=== PATIENT | female | born 1995 | race Two or more races ===

== ENCOUNTER 2016-07-23 23:00 | Inpatient (IN) | payer OTHER ==
[2016-07-23] MEDS ORDERED: RINGERS SOLUTION,LACTATED 300 ML IV ONE (23:41)
[2016-07-23] MEDS ORDERED: DINOPROSTONE 10 MG VAGINAL INSERT.SR PV PRN (23:41)
[2016-07-23] MEDS ORDERED: ACETAMINOPHEN 325 MG TABLET PO PRN (23:42)
[2016-07-23] MEDS ORDERED: MAG HYDROX/AL HYDROX/SIMETH SUSP 30 ML UDCUP PO PRN (23:42)
[2016-07-23] MEDS ORDERED: ZOLPIDEM TARTRATE 5 MG TABLET PO SCH (23:45)
[2016-07-23 23:57] LABS: APPEARANCE,URINE CLEAR; BILIRUBIN,URINE NEGATIVE (NEGATIVE); GLUCOSE, URINE NEGATIVE (NEGATIVE); KETONES,URINE NEGATIVE (NEGATIVE); LEUKOCYTE ESTERASE,URINE NEGATIVE (NEGATIVE); NITRITE,URINE NEGATIVE (NEGATIVE); PROTEIN,URINE NEGATIVE (NEGATIVE); URINE SPECIFIC GRAVITY 1.012; UROBILINOGEN,URINE NEGATIVE mg/dL (<2.0)
[2016-07-23 23:58] LABS: ABSOLUTE EOSINOPHILS # (AUTO) 0.1 10^3/uL (0.0-0.6); ABSOLUTE LYMPHOCYTES (AUTO) 2.2 10^3/uL (0.5-4.7); ABSOLUTE MONOCYTES (AUTO) 1.1 10^3/uL (0.1-1.4); ABSOLUTE NEUT (AUTO) 6.4 10^3/uL (1.7-8.2); BASOPHILS % (AUTO) 0.4 % (0-2); EOSINOPHILS % (AUTO) 1.2 % (0-6); HEMATOCRIT 30.9 % (36.0-47.0); HEMOGLOBIN 10.2 g/dL (12.0-15.5); HGB HCT DIFFERENCE -0.3; LYMPHOCYTES % (AUTO) 21.9 % (13-45); MEAN CORPUSCULAR HEMOGLOBIN 27.9 pg (27.0-33.4); MEAN CORPUSCULAR HGB CONC 33.1 g/dL (32.0-36.0); MEAN CORPUSCULAR VOLUME 85 fl (80-97); MONOCYTES % (AUTO) 11.7 % (3-13); RED BLOOD COUNT 3.66 10^6/uL (3.72-5.28); RED CELL DISTRIBUTION WIDTH 14.4 % (11.5-14.0); SEGMENTED NEUTROPHILS % (AUTO) 64.8 % (42-78); WHITE BLOOD COUNT 9.9 10^3/uL (4.0-10.5)
[2016-07-24] MEDS ORDERED: DINOPROSTONE 10 MG VAGINAL INSERT.SR ONE (00:06)
[2016-07-24] MEDS: RINGERS SOLUTION,LACTATED 1,000 ML IV PRN ×2 (00:14→06:36)
[2016-07-24 00:18] LABS: URINE BARBITURATES SCREEN NEGATIVE; URINE METHADONE SCREEN NEGATIVE; URINE OPIATES LOW NEGATIVE; URINE PHENCYCLIDINE SCREEN NEGATIVE
--- NOTE | 2016-07-24 08:01 | L&D Flow Sheet ---
LD Flowsheet Datetime Report Generated by CPN: 07/24/2016 08:00 Datetime: 07/24/2016 07:38 Level of Consciousness: Fully Conscious (Philly Sheree, RN) Headache: Denies (Philly Sheree, RN) Breath Sounds, Left: Clear and Equal (Philly Sheree, RN) Breath Sounds, Right: Clear and Equal (Philly Sheree, RN) Nausea/Vomiting: Denies (Philly Sheree, RN) RUQ Epigastric Pain: Denies (Philly Sheree, RN) Datetime: 07/24/2016 07:30 Monitor Mode: External; Palpation (Philly Sheree, RN) Frequency (min): irreg (Philly Sheree, RN) Quality: Mild (Philly Sheree, RN) Resting Tone (Palpate): Relaxed (Philly Sheree, RN) Monitor Mode: External US (Philly Sheree, RN) FHR Baseline Rate : 125 (Philly Sheree, RN) Variability: Moderate 6-25 bpm (Philly Sheree, RN) Accelerations: 15X15 (Philly Sheree, RN) Decelerations: None (Philly Sheree, RN) Datetime: 07/24/2016 07:21 Patient Care Comments: pt resting in bed with eyes closed laying on her left side (Philly Sheree, RN) Datetime: 07/24/2016 07:12 Communication Comments: Bedside report to A Sheree RN, care relinquished (Leisa Velizsel, RN) Datetime: 07/24/2016 07:00 Monitor Mode: External (Leisa Mary, RN) Frequency (min): irregular (Leisa Mary, RN) Quality: Mild (Leisa Mary, RN) Duration (sec): 120 (Leisa Mary, RN) Resting Tone (Palpate): Relaxed (Leisa Mary, RN) Monitor Mode: External US (Leisa Mary, RN) FHR Baseline Rate : 125 (Leisa Mary, RN) Variability: Moderate 6-25 bpm (Leisa Mary, RN) Accelerations: 15X15 (Leisa Mary, RN) Decelerations: None (Leisa Mary, RN) Datetime: 07/24/2016 06:38 IV/Blood Work: New IV Bag Hung; IV Bag Number @ 2 (Leisa Mary, RN) Datetime: 07/24/2016 06:35 I/O Interventions: Up to BR (Leisa Mary, RN) Datetime: 07/24/2016 06:30 Monitor Mode: External (Leisa Mary, RN) Frequency (min): irregular (Leisa Mary, RN) Quality: Mild (Leisa Mary, RN) Duration (sec): 100 (Leisa Mary, RN) Resting Tone (Palpate): Relaxed (Leisa Mary, RN) Monitor Mode: External US (Leisa Mary, RN) FHR Baseline Rate : 135 (Leisa Mary, RN) Variability: Moderate 6-25 bpm (Leisa Mary, RN) Accelerations: 15X15 (Leisa Mary, RN) Decelerations: None (Leisa Mary, RN) Datetime: 07/24/2016 06:00 Monitor Mode: External (Leisa Mary, RN) Frequency (min): 2-5 (Leisa Mary, RN) Quality: Mild (Leisa Mary, RN) Duration (sec): 60-120 (Leisa Mary, RN) Duration Criteria: Less than Two 120 Second Contractions (Leisa Mary, RN) Pattern: Normal: <= 5 Contractions in 10 Minutes (Leisa Mary, RN) Resting Tone (Palpate): Relaxed (Leisa Mary, RN) Monitor Mode: External US (Leisa Mary, RN) FHR Baseline Rate : 125 (Leisa Mary, RN) Variability: Moderate 6-25 bpm (Leisa Mary, RN) Accelerations: 15X15 (Leisa Mary, RN) Decelerations: None (Leisa Mary, RN) Datetime: 07/24/2016 05:36 NBP Sys/Carolyne/Mean (mmHg): 130 (QS system process) : 65 (QS system process) : 88 (QS system process) Pulse: 63 (QS system process) Respirations: 16 (Leisa Mary, RN) Temperature (F): 98.0 (Leisa Mary, RN) Temperature (C): 36.7 (QS system process) LaborFlag: Antepartum (QS system process) Datetime: 07/24/2016 05:30 Monitor Mode: External (Leisa Mary, RN) Frequency (min): 5-6 (Leisa Mary, RN) Quality: Mild (Leisa Mary, RN) Duration (sec): 70-180 (Leisa Mary, RN) Duration Criteria: More than Two 120 Second or Greater Contractions (Leisa Mary, RN) Pattern: Normal: <= 5 Contractions in 10 Minutes (Leisa Mary, RN) Resting Tone (Palpate): Relaxed (Leisa Mary, RN) Monitor Mode: External US (Leisa Mary, RN) FHR Baseline Rate : 125 (Leisa Mary, RN) Variability: Moderate 6-25 bpm (Leisa Mary, RN) Accelerations: 15X15 (Leisa Mary, RN) Decelerations: None (Leisa Mary, RN) Datetime: 07/24/2016 05:27 I/O Interventions: Up to BR (Leisa Mary, RN) Datetime: 07/24/2016 05:00 Monitor Mode: External (Leisa Mary, RN) Frequency (min): 2-4 (Leisa Mary, RN) Quality: Mild (Leisa Mary, RN) Duration (sec): 60-120 (Leisa Mary, RN) Duration Criteria: Less than Two 120 Second Contractions (Leisa Mary, RN) Pattern: Normal: <= 5 Contractions in 10 Minutes (Leisa Mary, RN) Resting Tone (Palpate): Relaxed (Leisa Mary, RN) Monitor Mode: External US (Leisa Mary, RN) FHR Baseline Rate : 125 (Leisa Mary, RN) Variability: Moderate 6-25 bpm (Leisa Mary, RN) Accelerations: 15X15 (Leisa Mary, RN) Decelerations: None (Leisa Mary, RN) Datetime: 07/24/2016 04:34 I/O Interventions: Up to BR (Leisa Mary, RN) Datetime: 07/24/2016 04:30 Monitor Mode: External (Leisa Mary, RN) Frequency (min): 5-6 (Leisa Mary, RN) Quality: Mild (Leisa Mary, RN) Duration (sec): 100-180 (Leisa Mary, RN) Duration Criteria: More than Two 120 Second or Greater Contractions (Leisa Mary, RN) Pattern: Normal: <= 5 Contractions in 10 Minutes (Leisa Mary, RN) Resting Tone (Palpate): Relaxed (Leisa Mary, RN) Monitor Mode: External US (Leisa Mary, RN) FHR Baseline Rate : 125 (Leisa Mary, RN) Variability: Moderate 6-25 bpm (Leisa Mary, RN) Accelerations: 15X15 (Leisa Mary, RN) Decelerations: None (Leisa Mary, RN) Datetime: 07/24/2016 04:00 Monitor Mode: External (Leisa Mary, RN) Frequency (min): 5-7 (Leisa Mary, RN) Quality: Mild (Leisa Mary, RN) Duration (sec): 120-200 (Leisa Mary, RN) Duration Criteria: More than Two 120 Second or Greater Contractions (Leisa Mary, RN) Pattern: Normal: <= 5 Contractions in 10 Minutes (Leisa Mary, RN) Resting Tone (Palpate): Relaxed (Leisa Mary, RN) Monitor Mode: External US (Leisa Mary, RN) FHR Baseline Rate : 130 (Leisa Mary, RN) Variability: Moderate 6-25 bpm (Leisa Mary, RN) Accelerations: 15X15 (Leisa Mary, RN) Decelerations: None (Leisa Mary, RN) Datetime: 07/24/2016 03:30 Monitor Mode: External (Leisa Mary, RN) Frequency (min): 2-7 (Leisa Mary, RN) Quality: Mild (Leisa Mary, RN) Duration (sec): 60-170 (Leisa Mary, RN) Duration Criteria: More than Two 120 Second or Greater Contractions (Leisa Mary, RN) Pattern: Normal: <= 5 Contractions in 10 Minutes (Leisa Mary, RN) Resting Tone (Palpate): Relaxed (Leisa Mary, RN) Monitor Mode: External US (Leisa Mary, RN) FHR Baseline Rate : 120 (Leisa Mary, RN) Variability: Moderate 6-25 bpm (Leisa Mary, RN) Accelerations: 15X15 (Leisa Mary, RN) Decelerations: None (Leisa Mary, RN) Datetime: 07/24/2016 03:00 Monitor Mode: External (Leisa Mary, RN) Frequency (min): 4-6 (Leisa Mary, RN) Quality: Mild (Leisa Mary, RN) Duration (sec): 80-110 (Leisa Mary, RN) Resting Tone (Palpate): Relaxed (Leisa Mary, RN) Monitor Mode: External US (Leisa Mary, RN) FHR Baseline Rate : 135 (Leisa Mary, RN) Variability: Moderate 6-25 bpm (Leisa Mary, RN) Accelerations: 15X15 (Leisa Mary, RN) Decelerations: None (Leisa Mary, RN) Datetime: 07/24/2016 02:52 Monitor Interventions for UA: [place] Adjusted (Leisa Hernandez, RN) Patient Care Comments: pt denies needs at this time (Leisa Hernandez, RN) Communication: RN at Bedside (Leisa Hernandez, RN) Datetime: 07/24/2016 02:30 Monitor Mode: External (Leisa Mary, RN) Frequency (min): 3-7 (Leisa Mary, RN) Quality: Mild (Leisa Mary, RN) Duration (sec): 90-180 (Leisa Mary, RN) Duration Criteria: More than Two 120 Second or Greater Contractions (Leisa Mary, RN) Pattern: Normal: <= 5 Contractions in 10 Minutes (Leisa Mary, RN) Resting Tone (Palpate): Relaxed (Leisa Mary, RN) Monitor Mode: External US (Leisa Mary, RN) FHR Baseline Rate : 135 (Leisa Mary, RN) Variability: Moderate 6-25 bpm (Leisa Mary, RN) Accelerations: 15X15 (Leisa Mary, RN) Decelerations: None (Leisa Mary, RN) Datetime: 07/24/2016 02:00 Monitor Mode: External (Leisa Mary, RN) Frequency (min): 3-5 (Leisa Mary, RN) Quality: Mild (Leisa Mary, RN) Duration (sec): 90-120 (Leisa Mary, RN) Duration Criteria: More than Two 120 Second or Greater Contractions (Leisa Mary, RN) Pattern: Normal: <= 5 Contractions in 10 Minutes (Leisa Mary, RN) Resting Tone (Palpate): Relaxed (Leisa Mary, RN) Monitor Mode: External US (Leisa Mary, RN) FHR Baseline Rate : 145 (Leisa Mary, RN) Variability: Moderate 6-25 bpm (Leisa Mary, RN) Accelerations: 15X15 (Leisa Mary, RN) Decelerations: None (Leisa Mary, RN) Datetime: 07/24/2016 01:48 I/O Interventions: Up to BR (Leisa Mary, RN) Datetime: 07/24/2016 01:30 Monitor Mode: External (Leisa Mary, RN) Frequency (min): irregular (Leisa Mary, RN) Quality: Mild (Leisa Mary, RN) Duration (sec): 60-170 (Leisa Mary, RN) Duration Criteria: More than Two 120 Second or Greater Contractions (Leisa Mary, RN) Pattern: Normal: <= 5 Contractions in 10 Minutes (Leisa Mary, RN) Resting Tone (Palpate): Relaxed (Leisa Mary, RN) Monitor Mode: External US (Leisa Mary, RN) FHR Baseline Rate : 140 (Leisa Mary, RN) Variability: Moderate 6-25 bpm (Leisa Mary, RN) Accelerations: 15X15 (Leisa Mary, RN) Decelerations: None (Leisa Mary, RN) Datetime: 07/24/2016 01:00 Monitor Mode: External (Leisa Mary, RN) Monitor Interventions for UA: [place] Adjusted (Leisa Mary, RN) Frequency (min): irregular (Leisa Mary, RN) Quality: Mild (Leisa Mary, RN) Duration (sec): 100-140 (Leisa Mary, RN) Duration Criteria: Less than Two 120 Second Contractions (Leisa Mary, RN) Pattern: Normal: <= 5 Contractions in 10 Minutes (Leisa Mary, RN) Resting Tone (Palpate): Relaxed (Leisa Mary, RN) Monitor Mode: External US (Leisa Mary, RN) FHR Baseline Rate : 145 (Leisa Mary, RN) Variability: Moderate 6-25 bpm (Leisa Mary, RN) Accelerations: 15X15 (Leisa Mary, RN) Decelerations: None (Leisa Mary, RN) Datetime: 07/24/2016 00:30 Monitor Mode: External (Leisa Mary, RN) Frequency (min): 4-5 (Leisa Mary, RN) Quality: Mild (Leisa Mary, RN) Duration (sec): 50-100 (Leisa Mary, RN) Duration Criteria: Less than Two 120 Second Contractions (Leisa Mary, RN) Pattern: Normal: <= 5 Contractions in 10 Minutes (Leisa Mary, RN) Resting Tone (Palpate): Relaxed (Leisa Mary, RN) Monitor Mode: External US (Leisa Mary, RN) FHR Baseline Rate : 145 (Leisa Mary, RN) Variability: Moderate 6-25 bpm (Leisa Mary, RN) Accelerations: 15X15 (Leisa Mary, RN) Decelerations: None (Leisa Amry, RN) Datetime: 07/24/2016 00:15 Monitor Mode: External (Leisa Mary, RN) Frequency (min): 3-4 (Leisa Mary, RN) Quality: Mild (Leisa Mary, RN) Duration (sec): 90-120 (Leisa Mary, RN) Duration Criteria: Less than Two 120 Second Contractions (Leisa Mary, RN) Pattern: Normal: <= 5 Contractions in 10 Minutes (Leisa Mary, RN) Resting Tone (Palpate): Relaxed (Leisa Mary, RN) Monitor Mode: External US (Leisa Mary, RN) FHR Baseline Rate : 140 (Leisa Mary, RN) Variability: Moderate 6-25 bpm (Leisa Mary, RN) Accelerations: 15X15 (Leisa Mary, RN) Decelerations: None (Leisa Mary, RN) Datetime: 07/24/2016 00:09 Dilatation (cm): 1.0 (Leisa Hernandez, RN) Effacement (%): 80 (Leisa Hernandez, RN) Station: -2 (Leisa Hernandez, RN) Exam by: Yokasta Hernandez RN (Leisa Hernandez, RN) Vaginal Bleeding: None (Leisa Hernandez RN) Cervix, Consistency: Moderate (Leisa Hernandez, RN) Cervix, Position: Posterior (Leisajw Hernandez, RN) Dilatation (cm): 1-2 cm (Leisa Hernandez RN) Effacement: >80_ effaced (Leisa Velizsel, RN) Station: minus 2 (Leisa Mary, RN) Consistency: Medium (Leisa Mary, RN) Position: Posterior (Leisa Mary, RN) Total Barth's Score: 6 (QS system process) : 5-8 = Small percentage of induction failure (QS system process) Cervical Ripening Agents: Cervidil (Leisa Mary, RN) Datetime: 07/24/2016 00:00 Monitor Mode: External (Leisa Mary, RN) Frequency (min): Irritability (Leisa Mary, RN) Quality: Mild (Leisa Mary, RN) Quality: abd soft to palpation (Leisa Mary, RN) Resting Tone (Palpate): Relaxed (Leisa Mary, RN) Monitor Mode: External US (Leisa Hernandez, RN) FHR Baseline Rate : 135 (Leisa Mary, RN) Variability: Moderate 6-25 bpm (Leisa Mary, RN) Accelerations: 15X15 (Leisa Mary, RN) Decelerations: None (Leisa Mary, RN) Pain Presence: None/Denies (Leisa Mary, RN) Membrane Status: Intact (Leisa Mary, RN) Vaginal Bleeding: None (Leisa Mary, RN) Level of Consciousness: Fully Conscious (Leisa Mary, RN) DTR's/Clonus: DTRs 2+; No Clonus (Leisajw Rosenbergl, RN) Headache: Denies (Leisa Hernandez, RN) Breath Sounds, Left: Clear and Equal (Leisa Hernandez RN) Breath Sounds, Right: Clear and Equal (Leisa Hernandez RN) Nausea/Vomiting: Denies (Leisa Hernandez RN) RUQ Epigastric Pain: Denies (Leisa Hernandez RN) Patient Position/Activity: Left Tilt (Leisa Hernandez RN) Comfort Measures: Family Support (Leisa Hernandez RN) Instructional Method: Verbal; Patient Instructed; Family/Support Person Instructed; Verbalized Understanding (Leisa Hernandez RN) Plan of Care: Plan of Care Discussed; Vaginal Delivery; Labor; Induction (Leisa Hernandez RN) Unit Routine: Nu Mine to Room; Call Chen; Bed; Unit Personnel; Monitoring; Bathroom Privileges (Leisa Hernandez RN) Labor/Induction: Cervical Ripening; Induction (Leisa Hernandez RN) Medications: Cervical Ripening; Pitocin (Leisa Hernandez RN) LaborFlag: Antepartum (QS system process) Datetime: 07/23/2016 23:55 I/O Interventions: Up to BR (Leisa Hernandez RN) Datetime: 07/23/2016 23:50 Procedures: Consents Signed (Leisa Mary, RN) Datetime: 07/23/2016 23:45 Monitor Mode: External (Leisa Mary, RN) Frequency (min): 4-5 (Leisa Mary, RN) Quality: Mild (Leisa Mary, RN) Duration (sec): 80-90 (Leisa Mary, RN) Resting Tone (Palpate): Relaxed (Leisa Mary, RN) Monitor Mode: External US (Leisa Mary, RN) FHR Baseline Rate : 130 (Leisa Mary, RN) Variability: Moderate 6-25 bpm (Leisa Mary, RN) Accelerations: 15X15 (Leisa Mary, RN) Decelerations: None (Leisa Mary, RN) Datetime: 07/23/2016 23:34 IV/Blood Work: Labs Drawn (Leisa Mary, RN) Datetime: 07/23/2016 23:31 NBP Sys/Carolyne/Mean (mmHg): 128 (QS system process) : 69 (QS system process) : 91 (QS system process) Pulse: 66 (QS system process) Respirations: 17 (Leisa Mary, RN) Temperature (F): 98.1 (Leisa Mary, RN) Temperature (C): 36.7 (QS system process) Temperature Route: Oral (Leisa Mary, RN) LaborFlag: Antepartum (QS system process) Datetime: 07/23/2016 23:30 Monitor Mode: External (Leisa Mary, RN) Frequency (min): x2 (Leisa Mary, RN) Quality: Mild (Leisa Mary, RN) Duration (sec): 50-70 (Leisa Mary, RN) Resting Tone (Palpate): Relaxed (Leisa Mary, RN) Monitor Mode: External US (Leisa Mary, RN) FHR Baseline Rate : 130 (Leisa Mary, RN) Variability: Moderate 6-25 bpm (Leisa Mary, RN) Accelerations: 15X15 (Leisa Mary, RN) Decelerations: None (Leisa Mary, RN) Datetime: 07/23/2016 23:24 IV/Blood Work: IV Started; IV Bolus Started; IV Bolus Given ml @ 250 (Leisa Mary, RN) Datetime: 07/23/2016 23:16 Stage of : Antepartum (Leisa Mary, RN)
--- NOTE | 2016-07-24 10:01 | L&D Flow Sheet ---
LD Flowsheet Datetime Report Generated by CPN: 07/24/2016 10:00 Datetime: 07/24/2016 09:30 Monitor Mode: External; Palpation (Philly Sheree, RN) Frequency (min): irreg (Philly Sheree, RN) Quality: Mild (Philly Sheree, RN) Resting Tone (Palpate): Relaxed (Philly Shreee, RN) Monitor Mode: External US (Philly Sheree, RN) FHR Baseline Rate : 130 (Philly Sheree, RN) Variability: Moderate 6-25 bpm (Philly Sheree, RN) Accelerations: 15X15 (Philly Sheree, RN) Decelerations: None (Philly Sheree, RN) Datetime: 07/24/2016 09:01 Patient Position/Activity: Left Lateral (Philly Sheree, RN) Datetime: 07/24/2016 09:00 Monitor Mode: External; Palpation (Philly Sheree, RN) Frequency (min): irreg (Philly Sheree, RN) Quality: Mild (Philly Sheree, RN) Resting Tone (Palpate): Relaxed (Philly Sheree, RN) Monitor Mode: External US (Philly Sheree, RN) FHR Baseline Rate : 125 (Philly Sheree, RN) Variability: Moderate 6-25 bpm (Philly Sheree, RN) Accelerations: 15X15 (Philly Sheree, RN) Decelerations: None (Philly Sheree, RN) Datetime: 07/24/2016 08:58 I/O Interventions: Up to BR (Philly Sheree, RN) Datetime: 07/24/2016 08:30 Monitor Mode: External; Palpation (Philly Sheree, RN) Frequency (min): irreg (Philly Sheree, RN) Quality: Mild (Philly Sheree, RN) Resting Tone (Palpate): Relaxed (Philly Sheree, RN) Monitor Mode: External US (Philly Sheree, RN) FHR Baseline Rate : 130 (Philly Sheree, RN) Variability: Moderate 6-25 bpm (Philly Sheree, RN) Accelerations: None (Philly Sheree, RN) Decelerations: None (Philly Sheree, RN) Datetime: 07/24/2016 08:00 Monitor Mode: External; Palpation (Philly Sheree, RN) Frequency (min): irreg (Philly Sheree, RN) Quality: Mild (Philly Sheree, RN) Resting Tone (Palpate): Relaxed (Philyl Sheree, RN) Monitor Mode: External US (Philly Sheree, RN) FHR Baseline Rate : 130 (Philly Sheree, RN) Variability: Moderate 6-25 bpm (Philly Sheree, RN) Accelerations: 15X15 (Philly Sheree, RN) Decelerations: None (Philly Bentley RN)
--- NOTE | 2016-07-24 12:01 | L&D Flow Sheet ---
LD Flowsheet Datetime Report Generated by CPN: 07/24/2016 12:00 Datetime: 07/24/2016 11:00 Monitor Mode: External; Palpation (Philly Sheree, RN) Frequency (min): occ (Philly Sheree, RN) Quality: Mild (Philly Sheree, RN) Resting Tone (Palpate): Relaxed (Philly Sheree, RN) Monitor Mode: External US (Philly Sheree, RN) FHR Baseline Rate : 125 (Philly Sheree, RN) Variability: Moderate 6-25 bpm (Philly Sheree, RN) Accelerations: 15X15 (Philly Sheree, RN) Decelerations: None (Philly Sheree, RN) Datetime: 07/24/2016 10:30 Monitor Mode: External; Palpation (Philly Sheree, RN) Frequency (min): irreg (Philly Sheree, RN) Quality: Mild (Philly Sheree, RN) Resting Tone (Palpate): Relaxed (Philly Sheree, RN) Monitor Mode: External US (Philly Sheree, RN) FHR Baseline Rate : 130 (Philly Sheree, RN) Variability: Moderate 6-25 bpm (Philly Sheree, RN) Accelerations: 15X15 (Philly Sheree, RN) Decelerations: None (Philly Sheree, RN) Datetime: 07/24/2016 10:19 I/O Interventions: Up to BR (Philly Sheree, RN) Datetime: 07/24/2016 10:00 Monitor Mode: External; Palpation (Philly Sheree, RN) Frequency (min): irreg (Philly Sheree, RN) Quality: Mild (Philly Bentley RN) Resting Tone (Palpate): Relaxed (Philly Bentley RN) Monitor Mode: External US (Philly Bentley RN) FHR Baseline Rate : 125 (Philly Bentley RN) Variability: Moderate 6-25 bpm (Philly Bentley RN) Accelerations: 15X15 (Philly Bentley RN) Decelerations: None (Philly Bentley RN)
[2016-07-24] MEDS ORDERED: MISOPROSTOL 0.1 MG TABLET ONE ×2 (13:32→19:55)
--- NOTE | 2016-07-24 14:01 | L&D Flow Sheet ---
LD Flowsheet Datetime Report Generated by CPN: 07/24/2016 14:00 Datetime: 07/24/2016 13:22 NBP Sys/Carolyne/Mean (mmHg): 118 (QS system process) : 55 (QS system process) : 79 (QS system process) Pulse: 68 (QS system process) LaborFlag: Antepartum (QS system process) Datetime: 07/24/2016 13:18 Dilatation (cm): 1.0 (Philly Sheree, RN) Effacement (%): 50 (Philly Sheree, RN) Station: -1 (Philly Sheree, RN) Exam by: C. Vega CNM (Philly Sheree, RN) Datetime: 07/24/2016 13:16 Communication Comments: C. Vega CNM at bedside (Philly Sheree, RN) Datetime: 07/24/2016 12:07 Medication Comments: Cervidil removed (Philly Sheree, RN) Patient Care Comments: monitors disconnected for pt to shower and ambulate for 1 hour (Philly Sheree, RN) Datetime: 07/24/2016 12:00 Monitor Mode: External; Palpation (Philly Bentley, RN) Frequency (min): irreg (Philly Bentley, RN) Quality: Mild (Philly Sheree, RN) Resting Tone (Palpate): Relaxed (Philly Bentley, RN) Monitor Mode: External US (Philly Benltey, RN) FHR Baseline Rate : 130 (Philly Sheree, RN) Variability: Moderate 6-25 bpm (Philly Sheree, RN) Accelerations: 15X15 (Philly Sheree, RN) Decelerations: None (Philly Sheree, RN)
--- NOTE | 2016-07-24 16:01 | L&D Flow Sheet ---
LD Flowsheet Datetime Report Generated by CPN: 07/24/2016 16:00 Datetime: 07/24/2016 15:00 Monitor Mode: External; Palpation (Philly Sheree, RN) Frequency (min): 2-6 (Philly Sheree, RN) Quality: Mild (Philly Sheree, RN) Duration (sec): 60-90 (Philly Sheree, RN) Resting Tone (Palpate): Relaxed (Philly Sheree, RN) Monitor Mode: External US (Philly Sheree, RN) FHR Baseline Rate : 135 (Philly Sheree, RN) Variability: Moderate 6-25 bpm (Philly Sheree, RN) Accelerations: 15X15 (Philly Sheree, RN) Decelerations: None (Philly Sheree, RN) Datetime: 07/24/2016 14:30 Monitor Mode: External; Palpation (Philly Sheree, RN) Frequency (min): irreg (Philly Sheree, RN) Quality: Mild (Philly Sheree, RN) Resting Tone (Palpate): Relaxed (Philly Sheree, RN) Monitor Mode: External US (Philly Sheree, RN) FHR Baseline Rate : 135 (Philly Sheree, RN) Variability: Moderate 6-25 bpm (Philly Sheree, RN) Accelerations: 15X15 (Philly Sheree, RN) Decelerations: None (Philly Sheree, RN) Datetime: 07/24/2016 14:27 Monitor Interventions for UA: [place] Adjusted (Philly Sheree, RN) Monitor Interventions for FHR: Ultrasound Adjusted (Philly Sheree, RN) Communication: RN at Bedside (Philly Sheree, RN) Datetime: 07/24/2016 14:26 Patient Position/Activity: Left Lateral (Philly Bentley, RN) Patient Care Comments: pt resting in bed with eyes closed (Philly Bentley, RN) Datetime: 07/24/2016 14:00 Monitor Mode: External; Palpation (Philly Bentley, RN) Frequency (min): 2-5 (Philly Bentley, RN) Quality: Mild (Philly Bentley, RN) Duration (sec): 60-90 (Philly Sheree, RN) Resting Tone (Palpate): Relaxed (Philly Bentley, RN) Monitor Mode: External US (Philly Bentley, RN) FHR Baseline Rate : 140 (Philly Bentley, RN) Variability: Moderate 6-25 bpm (Philly Sheree, RN) Accelerations: 15X15 (Philly Sheree, RN) Decelerations: None (Philly Bentley, RN)
--- NOTE | 2016-07-24 17:06 | L&D Progress Notes ---
PROGRESS NOTES Datetime Report Generated by CPN: 07/24/2016 17:05 PROGRESS NOTE Impression Other: IOL-stable Procedures: Sterile Vag Exam Plan: Continue Present Management; Induction Informed Consent Obtained: Induction of Labor; Risks, Benefits and Alternatives Discussed Vital Signs : Reviewed; Within Normal Limits Comment: Late entry to 1330 S: pt. stable, reports mild cramping, no other discomforts at this time O: VSS, Cat I tracing, cervix as stated A: IOL-stable, progressing P: will continue IOL with cytotec at this time. Reviewed with Dr. Lock. Reassess as clinically indicated or earlier prn. VAGINAL EXAM Dilatation: 1 Effacement: 80 Station: -2 MEMBRANES Pooling: Negative Membranes: Intact FETUS A : 41.1 Estimated Weight (gm): 4000 Presentation: Vertex SIGNATURE SIGNATURE: [id number] Assignment: Rosa Lock MD Signature: with User ID: [email or web address] : with User ID: [email or web address]
--- NOTE | 2016-07-24 18:01 | L&D Flow Sheet ---
LD Flowsheet Datetime Report Generated by CPN: 07/24/2016 18:00 Datetime: 07/24/2016 17:50 I/O Interventions: Up to BR (Philly Sheree, RN) Datetime: 07/24/2016 17:49 Monitor Mode: External; Palpation (Philly Sheree, RN) Frequency (min): 2-5 (Philly Sheree, RN) Quality: Mild (Philly Sheree, RN) Duration (sec): 60-90 (Philly Sheree, RN) Resting Tone (Palpate): Relaxed (Philly Sheree, RN) Monitor Mode: External US (Philly Sheree, RN) FHR Baseline Rate : 125 (Philly Sheree, RN) Variability: Moderate 6-25 bpm (Philly Sheree, RN) Accelerations: 15X15 (Philly Sheree, RN) Decelerations: None (Philly Sheree, RN) Datetime: 07/24/2016 17:48 Communication Comments: Dr. Lock called unit after talking with Zoie Vega CNM and said to let pt eat, ambulate, and hold Cervidil. She wants to be called once shift supervisor rn gets on to see what she wants to give pt for medication (Philly Sheree, RN) Datetime: 07/24/2016 17:38 Communication Comments: Zoie Vega CNM on unit, informed of SVE. FHR strip reviewed. Order recieved to let pt order dinner, walk around for about an hour then place another cervidil tonight (Philly Sheree, RN) Datetime: 07/24/2016 17:37 Dilatation (cm): 1.0 (Philly Sheree, RN) Effacement (%): 60 (Philly Sheree, RN) Station: -1 (Philly Sheree, RN) Exam by: Elliot Sheree RN (Pihlly Sheree, RN) Datetime: 07/24/2016 17:30 Monitor Mode: External; Palpation (Philly Sheree, RN) Frequency (min): 2-5 (Philly Sheree, RN) Quality: Mild (Philly Sheree, RN) Duration (sec): 60-90 (Philly Sheree, RN) Resting Tone (Palpate): Relaxed (Philly Sheree, RN) Monitor Mode: External US (Philly Sheree, RN) FHR Baseline Rate : 135 (Philly Sheree, RN) Variability: Moderate 6-25 bpm (Philly Sheree, RN) Accelerations: None (Philly Sheree, RN) Decelerations: None (Philly Sheree, RN) Datetime: 07/24/2016 17:00 Monitor Mode: External; Palpation (Philly Sheree, RN) Frequency (min): 3-5 (Philly Sheree, RN) Quality: Mild (Philly Sheree, RN) Duration (sec): 60-90 (Philly Sheree, RN) Resting Tone (Palpate): Relaxed (Philly Sheree, RN) Monitor Mode: External US (Philly Sheree, RN) FHR Baseline Rate : 145 (Philly Sheree, RN) Variability: Moderate 6-25 bpm (Philly Sheree, RN) Accelerations: 15X15 (Philly Sheree, RN) Decelerations: None (Phlily Sheree, RN) Datetime: 07/24/2016 16:54 Medication Comments: new bag of LR hung (Philly Sheree, RN) Datetime: 07/24/2016 16:30 Monitor Mode: External; Palpation (Philly Sheree, RN) Frequency (min): 1-4 (Philly Sheree, RN) Quality: Mild (Philly Sheree, RN) Duration (sec): 60-80 (Philly Sheree, RN) Resting Tone (Palpate): Relaxed (Philly Sheree, RN) Monitor Mode: External US (Philly Sheree, RN) FHR Baseline Rate : 135 (Philly Sheree, RN) Variability: Moderate 6-25 bpm (Philly Sheree, RN) Accelerations: 15X15 (Philly Sheree, RN) Decelerations: None (Philly Sheree, RN) Datetime: 07/24/2016 16:19 Temperature (F): 98.3 (Philly Sheree, RN) Temperature (C): 36.8 (QS system process) LaborFlag: Antepartum (QS system process) Datetime: 07/24/2016 16:00 Monitor Mode: External; Palpation (Philly Sheree, RN) Frequency (min): 3-5 (Philly Sheree, RN) Quality: Mild (Philly Sheree, RN) Duration (sec): 60-90 (Philly Sheree, RN) Resting Tone (Palpate): Relaxed (Philly Sheree, RN) Monitor Mode: External US (Philly Sheree, RN) FHR Baseline Rate : 135 (Philly Sheree, RN) Variability: Moderate 6-25 bpm (Philly Sheree, RN) Accelerations: 15X15 (Philly Sheree, RN) Decelerations: None (Philly Sheree, RN)
[2016-07-24] MEDS ORDERED: MISOPROSTOL 0.1 MG TABLET PV ONE (19:12)
--- NOTE | 2016-07-24 20:01 | L&D Flow Sheet ---
LD Flowsheet Datetime Report Generated by CPN: 07/24/2016 20:00 Datetime: 07/24/2016 19:13 Communication: report given to K. Mary RN, care relinquished at this time (Philly Sheree, RN) Datetime: 07/24/2016 19:00 Communication: Dr. Lock called and stated she wants 50mcg Cytotec PV placed after pt is done eating (Philly Sheree, RN)
--- NOTE | 2016-07-24 22:01 | L&D Flow Sheet ---
LD Flowsheet Datetime Report Generated by CPN: 07/24/2016 22:00 Datetime: 07/24/2016 20:30 Monitor Mode: External (Leisa Mary, RN) Frequency (min): 2-5 (Leisa Mary, RN) Quality: Mild/Moderate (Leisa Mary, RN) Duration (sec): 90-160 (Leisa Mary, RN) Duration Criteria: More than Two 120 Second or Greater Contractions (Leisa Mary, RN) Pattern: Normal: <= 5 Contractions in 10 Minutes (Leisa Mary, RN) Resting Tone (Palpate): Relaxed (Leias Mary, RN) Monitor Mode: External US (Leisa Mary, RN) FHR Baseline Rate : 135 (Leisa Mary, RN) Variability: Moderate 6-25 bpm (Leisa Mary, RN) Accelerations: 15X15 (Leisa Mary, RN) Decelerations: None (Leisa Mary, RN) Datetime: 07/24/2016 20:09 NBP Sys/Carolyne/Mean (mmHg): 126 (QS system process) : 74 (QS system process) : 93 (QS system process) Pulse: 71 (QS system process) Respirations: 17 (Leisa Hernandez RN) Temperature (F): 98.3 (Leisa Hernandez RN) Temperature (C): 36.8 (QS system process) LaborFlag: Antepartum (QS system process) Datetime: 07/24/2016 20:07 Dilatation (cm): 1.5 (Leisa Hernandez RN) Effacement (%): 70 (Leisa Hernandez RN) Station: -1 (Leisa Hernandez RN) Exam by: Yokasta Hernandez RN (Leisa Hernandez RN) Vaginal Bleeding: None (Leisa Hernandez RN) Cervix, Consistency: Moderate (Leisa Hernandez RN) Cervix, Position: Midposition (Leisa Hernandez RN) Cervical Ripening Agents: Cytotec @ 50 mcg PV (Leisa Hernandez RN) Datetime: 07/24/2016 20:00 Level of Consciousness: Fully Conscious (Leisa Hernandez RN) Headache: Denies (Leisa Hernandez RN) Breath Sounds, Left: Clear and Equal (Leisa Hernandez RN) Breath Sounds, Right: Clear and Equal (Leisa Hernandez RN) Nausea/Vomiting: Denies (Leisa Hernandez RN) RUQ Epigastric Pain: Denies (Leisa Hernandez RN)
[2016-07-24] MEDS ORDERED: NALBUPHINE HCL INJ 10 MG/1 ML AMPULE ONE (23:39)
[2016-07-24] MEDS ORDERED: PROMETHAZINE HCL INJ 25 MG/1 ML VIAL ONE (23:39)
[2016-07-25] MEDS ORDERED: EPHEDRINE SULFATE INJ 50 MG/1 ML AMPULE ONE (00:47)
[2016-07-25] MEDS ORDERED: FENTANYL/BUPIVACAINE/NS/PF 200 MCG/100 ML RTUINJ EPI ONE (00:47)
[2016-07-25] MEDS ORDERED: BUPIVACAINE HCL 0.25 % INJ/PF (2.5 MG/1 ML) 30 ML VIAL ONE (00:47)
[2016-07-25] MEDS: RINGERS SOLUTION,LACTATED 1,000 ML IV PRN (02:32)
[2016-07-25] MEDS ORDERED: OXYTOCIN/NORMAL SALINE 20 UNIT/1,000 ML RTUINJ ONE ×2 (02:45→05:05)
[2016-07-25] MEDS ORDERED: MISOPROSTOL 0.2 MG TABLET ONE (05:04)
[2016-07-25] MEDS ORDERED: LIDOCAINE 1% INJ-PF (10 MG/ML) 30 ML SDV ONE (05:05)
[2016-07-25] MEDS ORDERED: METHYLERGONOVINE MALEATE INJ/PF 0.2 MG/1 ML AMPULE ONE (06:14)
--- NOTE | 2016-07-25 08:01 | L&D Flow Sheet ---
LD Flowsheet Datetime Report Generated by CPN: 07/25/2016 08:00 Datetime: 07/25/2016 07:48 NBP Sys/Carolyne/Mean (mmHg): 135 (QS system process) : 90 (QS system process) : 107 (QS system process) Pulse: 71 (QS system process) Datetime: 07/25/2016 07:00 NBP Sys/Carolyne/Mean (mmHg): 135 (QS system process) : 77 (QS system process) : 97 (QS system process) Pulse: 83 (QS system process) Pain Presence: None/Denies (Leisa Mary, RN) Datetime: 07/25/2016 06:45 NBP Sys/Carolyne/Mean (mmHg): 136 (QS system process) : 70 (QS system process) : 96 (QS system process) Pulse: 80 (QS system process) Datetime: 07/25/2016 06:30 NBP Sys/Carolyne/Mean (mmHg): 138 (QS system process) : 69 (QS system process) : 96 (QS system process) Pulse: 86 (QS system process) Datetime: 07/25/2016 06:15 NBP Sys/Carolyne/Mean (mmHg): 126 (QS system process) : 63 (QS system process) : 84 (QS system process) Pulse: 94 (QS system process) Datetime: 07/25/2016 06:02 Stage of : Recovery (Criselda Harden RN) Datetime: 07/25/2016 06:01 NBP Sys/Carolyne/Mean (mmHg): 148 (QS system process) : 70 (QS system process) : 101 (QS system process) Pulse: 112 (QS system process) Stage 2 Comments: viable male . See delivery summary (Criselda Harden RN) LaborFlag: Antepartum (QS system process) Datetime: 07/25/2016 06:00 Monitor Mode: External (Leisa Mary, RN) Frequency (min): 2-3 (Leisa Mary, RN) Quality: Moderate to Strong (Leisa Mary, RN) Duration (sec): 60-140 (Leisa Mary, RN) Resting Tone (Palpate): Relaxed (Leisa Mary, RN) Monitor Mode: External US (Leisa Mary, RN) FHR Baseline Rate : 155 (Leisa Mary, RN) Variability: Moderate 6-25 bpm (Leisa Mary, RN) Accelerations: None (Leisa Mary, RN) Decelerations: Early; Late (Leisa Mary, RN) Pushing: Coached on Pushing (Leisa Mary, RN) Pushing Position: Pushing with Contractions; Pushing Left Side (Leisa Mary, RN) Pushing Progress: Descent with Pushing; Presenting Part Visible; with Pushing; Pushing Effectively with Contractions (Leisa Mary, RN) Datetime: 07/25/2016 05:55 Pushing: Coached on Pushing (Leisa Mary, RN) Pushing Position: Pushing with Contractions; Pushing Left Side (Leisa Mary, RN) Pushing Progress: Descent with Pushing; Presenting Part Visible; with Pushing; Pushing Effectively with Contractions (Leisa Hernandez RN) Communication: Provider at Bedside (Criselda Harden RN) Communication Comments: Dr Lock at bedside (Criselda Harden RN) Datetime: 07/25/2016 05:50 Pushing: Coached on Pushing (Leisa Hernandez RN) Pushing Position: Pushing with Contractions; Pushing Left Side (Leisa Hernandez RN) Pushing Progress: Descent with Pushing; Presenting Part Visible; with Pushing; Pushing Effectively with Contractions (Leisa Hernandez RN) Datetime: 07/25/2016 05:45 NBP Sys/Carolyne/Mean (mmHg): 129 (QS system process) : 75 (QS system process) : 94 (QS system process) Pulse: 142 (QS system process) Monitor Mode: External (Leisa Hernandez RN) Frequency (min): 2-3 (Leisa Hernandez RN) Quality: Moderate to Strong (Leisa Mary, RN) Duration (sec): 60-120 (Leisa Mary, RN) Resting Tone (Palpate): Relaxed (Leisa Mary, RN) Monitor Mode: External US (Leisa Mary, RN) FHR Baseline Rate : 145 (Leisa Mary, RN) Variability: Moderate 6-25 bpm (Leisa Mary, RN) Accelerations: None (Leisa Mary, RN) Decelerations: Early (Leisa Mary, RN) Pushing: Coached on Pushing (Leisa Mary, RN) Pushing Position: Pushing with Contractions; Pushing Left Side (Leisa Mary, RN) Pushing Progress: Descent with Pushing; Presenting Part Visible; Pushing Effectively with Contractions (Leisa Mary, RN) LaborFlag: Antepartum (QS system process) Datetime: 07/25/2016 05:41 Pushing: Coached on Pushing (Leisa Mary, RN) Pushing Position: Pushing with Contractions; Pushing Left Side (Leisa Mary, RN) Pushing Progress: Descent with Pushing; Pushing Effectively with Contractions (Leisa Mary, RN) Datetime: 07/25/2016 05:35 Pushing: Coached on Pushing (Leisa Mary, RN) Pushing Position: Pushing with Contractions; Pushing Left Side (Leisa Mary, RN) Pushing Progress: Descent with Pushing; Pushing Effectively with Contractions (Leisa Mary, RN) Datetime: 07/25/2016 05:30 Monitor Mode: External (Leisa Mary, RN) Frequency (min): 2-3 (Leisa Mary, RN) Quality: Moderate to Strong (Leisa Mary, RN) Duration (sec): 60-120 (Leisa Mary, RN) Resting Tone (Palpate): Relaxed (Leisa Mary, RN) Monitor Mode: External US (Leisa Mary, RN) FHR Baseline Rate : 145 (Leisa Mary, RN) Variability: Moderate 6-25 bpm (Leisa Mary, RN) Accelerations: None (Leisa Mary, RN) Decelerations: Variable (Leisa Mary, RN) Pushing: Coached on Pushing (Leisa Mary, RN) Pushing Position: Pushing with Contractions; Pushing Left Side (Leisa Mary, RN) Pushing Progress: Pushing Effectively with Contractions (Leisa Mary, RN) Datetime: 07/25/2016 05:22 Comments: Rn remains at bedside continuously assessing FHR and ctx (Criselda Lattibeaudeir, RN) Pushing: Coached on Pushing (Leisa Velizsel, RN) Pushing Position: Pushing with Contractions; Pushing Left Side (Leisa Mary, RN) Communication: Provider at Bedside (Leisa Velizsel, RN) Communication Comments: Dr Lock on unit (Leisa Mary, RN) Datetime: 07/25/2016 05:20 Stage 2 Comments: Dr. Lock at bedside (Criselda Lattibeaudeir, RN) Datetime: 07/25/2016 05:16 NBP Sys/Carolyne/Mean (mmHg): 133 (QS system process) : 87 (QS system process) : 105 (QS system process) Pulse: 88 (QS system process) LaborFlag: Antepartum (QS system process) Datetime: 07/25/2016 05:15 Monitor Mode: External (Leisa Mary, RN) Frequency (min): 2-3.5 (Leisa Mary, RN) Quality: Moderate to Strong (Leisa Mary, RN) Duration (sec): 70-120 (Leisa Mary, RN) Resting Tone (Palpate): Relaxed (Leisa Mary, RN) Monitor Mode: External US (Leisa Mary, RN) FHR Baseline Rate : 150 (Leisa Mary, RN) Variability: Minimal - Undetectable to <=5 bpm (Leisa Mary, RN) Accelerations: 10X10 (Leisa Mary, RN) Decelerations: Early (Leisa Mary, RN) Datetime: 07/25/2016 05:14 Temperature (F): 98.8 (Leisa Hernandez RN) Temperature (C): 37.1 (QS system process) LaborFlag: Antepartum (QS system process) Datetime: 07/25/2016 05:04 I/O Interventions: Ambrosio Discontinued (Leisa Hernandez RN) Patient Care Comments: Room prepared for delivery (Leisa Hernandez RN) Datetime: 07/25/2016 05:03 Communication Comments: Dr Lock called and made aware of SVE. MD states she is on her way to unit from home. (Mary Renteria, RN) Datetime: 07/25/2016 05:02 NBP Sys/Carolyne/Mean (mmHg): 128 (QS system process) : 96 (QS system process) : 106 (QS system process) Pulse: 88 (QS system process) Dilatation (cm): 10.0 (Leisa Hernandez, RN) Effacement (%): 100 (Leisa Hernandez, RN) Station: 1 (Leisa Hernandez, RN) Exam by: Yokasta Hernandez RN (Leisa Hernandez, RN) Vaginal Bleeding: Normal Show (Leisa Hernandez RN) Pushing Position: Laboring Down (Leisa Hernandez RN) LaborFlag: Antepartum (QS system process) Datetime: 07/25/2016 05:00 Monitor Mode: External (Leisa Mary, RN) Frequency (min): 2-3 (Leisa Mary, RN) Quality: Moderate to Strong (Leisa Mary, RN) Duration (sec): 60-120 (Leisa Mary, RN) Resting Tone (Palpate): Relaxed (Leisa Mary, RN) Monitor Mode: External US (Leisa Mary, RN) FHR Baseline Rate : 145 (Leisa Mary, RN) Variability: Moderate 6-25 bpm (Leisa Mary, RN) Accelerations: 10X10 (Leisa Mary, RN) Decelerations: Late (Leisa Mary, RN) Datetime: 07/25/2016 04:45 NBP Sys/Carolyne/Mean (mmHg): 137 (QS system process) : 86 (QS system process) : 107 (QS system process) Pulse: 76 (QS system process) Monitor Mode: External (Leisa Mary, RN) Frequency (min): 1.5-3.5 (Leisa Mary, RN) Quality: Moderate (Leisa Mary, RN) Duration (sec): 70-100 (Leisa Mary, RN) Resting Tone (Palpate): Relaxed (Leisa Mary, RN) Monitor Mode: External US (Leisa Mary, RN) FHR Baseline Rate : 145 (Leisa Mary, RN) Variability: Moderate 6-25 bpm (Leisa Mary, RN) Accelerations: None (Leisa Mary, RN) Decelerations: Early; Late (Leisa Mary, RN) LaborFlag: Antepartum (QS system process) Datetime: 07/25/2016 04:32 NBP Sys/Carolyne/Mean (mmHg): 137 (QS system process) : 105 (QS system process) : 114 (QS system process) Pulse: 88 (QS system process) Patient Care Comments: Pt laying on BP cuff (Leisa Hernandez RN) LaborFlag: Antepartum (QS system process) Datetime: 07/25/2016 04:30 Monitor Mode: External (Leisa Mary, RN) Frequency (min): 1-2.5 (Leisa Mary, RN) Quality: Moderate (Leisa Mary, RN) Duration (sec): 60-100 (Leisa Mary, RN) Resting Tone (Palpate): Relaxed (Leisa Mary, RN) Monitor Mode: External US (Leisa Mary, RN) FHR Baseline Rate : 140 (Leisa Mary, RN) Variability: Minimal - Undetectable to <=5 bpm (Leisa Mary, RN) Accelerations: None (Leisa Mary, RN) Decelerations: Early; Late; Variable (Leisa Mary, RN) Datetime: 07/25/2016 04:28 Comments: O2 removed (Leisa Mary, RN) Datetime: 07/25/2016 04:22 Actions for Decelerations: Oxygen Applied (Mary Errichiello, RN) Datetime: 07/25/2016 04:21 Actions for Decelerations: Pitocin Off; IV Bolus (Mary Errichiello, RN) Patient Position/Activity: Trendelenburg (Mary Errichiello, RN) Datetime: 07/25/2016 04:16 NBP Sys/Carolyne/Mean (mmHg): 138 (QS system process) : 96 (QS system process) : 111 (QS system process) Pulse: 76 (QS system process) LaborFlag: Antepartum (QS system process) Datetime: 07/25/2016 04:15 Monitor Mode: External (Leisa Mary, RN) Frequency (min): 2-3 (Leisa Mary, RN) Quality: Moderate (Leisa Mayr, RN) Duration (sec): 60-100 (Leisa Mary, RN) Resting Tone (Palpate): Relaxed (Leisa Mary, RN) Monitor Mode: External US (Leisa Mary, RN) FHR Baseline Rate : 140 (Leisa Mary, RN) Variability: Moderate 6-25 bpm (Leisa Mary, RN) Accelerations: 10X10 (Leisa Mary, RN) Decelerations: Late; Variable (Leisa Mary, RN) Pitocin (milliunit): Pitocin Remains (milliunits) @ (Annotations: 2) (Leisa Mary, RN) Datetime: 07/25/2016 04:06 Actions for Decelerations: Trendelenberg (Leisa Mary, RN) Datetime: 07/25/2016 04:04 Dilatation (cm): 5.0 (Leisa Mary, RN) Effacement (%): 90 (Leisa Mary, RN) Station: 0 (Leisa Mary, RN) Exam by: K Mary RN (Leisa Mary, RN) Datetime: 07/25/2016 04:00 NBP Sys/Carolyne/Mean (mmHg): 120 (QS system process) : 76 (QS system process) : 88 (QS system process) Pulse: 89 (QS system process) Monitor Mode: External (Leisa Mary, RN) Frequency (min): 2-3 (Leisa Mary, RN) Quality: Moderate (Leisa Mary, RN) Duration (sec): 70-90 (Leisa Mary, RN) Resting Tone (Palpate): Relaxed (Leisa Mary, RN) Monitor Mode: External US (Leisa Mary, RN) FHR Baseline Rate : 140 (Leisa Mary, RN) Variability: Moderate 6-25 bpm (Leisa Mary, RN) Accelerations: None (Leisa Mary, RN) Decelerations: Late (Leisa Mary, RN) Pitocin (milliunit): Pitocin Remains (milliunits) @ (Annotations: 2) (Leisa Mary, RN) LaborFlag: Antepartum (QS system process) Datetime: 07/25/2016 03:51 Patient Position/Activity: Left Extreme (Leisa Mary, RN) Datetime: 07/25/2016 03:49 Actions for Decelerations: Side to Side (Leisa Mary, RN) Patient Position/Activity: Left Tilt (Leisa Mary, RN) Datetime: 07/25/2016 03:45 NBP Sys/Carolyne/Mean (mmHg): 113 (QS system process) : 57 (QS system process) : 79 (QS system process) Pulse: 81 (QS system process) Monitor Mode: External (Leisa Mary, RN) Frequency (min): 2-3 (Leisa Mary, RN) Quality: Moderate (Leisa Mary, RN) Duration (sec): 70-100 (Leisa Mary, RN) Resting Tone (Palpate): Relaxed (Leisa Mary, RN) Monitor Mode: External US (Leisa Mary, RN) FHR Baseline Rate : 145 (Leisa Mary, RN) Variability: Moderate 6-25 bpm (Leisa Mary, RN) Accelerations: None (Leisa Mary, RN) Decelerations: Late (Leisa Mary, RN) Pitocin (milliunit): Pitocin Remains (milliunits) @ (Annotations: 2) (Leisa Mary, RN) LaborFlag: Antepartum (QS system process) Datetime: 07/25/2016 03:30 NBP Sys/Carolyne/Mean (mmHg): 126 (QS system process) : 67 (QS system process) : 89 (QS system process) Pulse: 76 (QS system process) Monitor Mode: External (Leisa Mary, RN) Frequency (min): 2-2.5 (Leisa Mary, RN) Quality: Moderate (Leisa Mary, RN) Duration (sec): 60-110 (Leisa Mary, RN) Resting Tone (Palpate): Relaxed (Leisa Mary, RN) Monitor Mode: External US (Leisa Mary, RN) FHR Baseline Rate : 140 (Leisa Mary, RN) Variability: Moderate 6-25 bpm (Leisa Mary, RN) Accelerations: 15X15 (Leisa Mary, RN) Decelerations: None (Leisa Mary, RN) Pitocin (milliunit): Pitocin Remains (milliunits) @ (Annotations: 2) (Leisa Mary, RN) LaborFlag: Antepartum (QS system process) Datetime: 07/25/2016 03:16 NBP Sys/Carolyne/Mean (mmHg): 127 (QS system process) : 69 (QS system process) : 91 (QS system process) Pulse: 70 (QS system process) LaborFlag: Antepartum (QS system process) Datetime: 07/25/2016 03:15 Monitor Mode: External (Leisa Mary, RN) Frequency (min): 2-3 (Leisa Mary, RN) Quality: Moderate (Leisa Mary, RN) Duration (sec): 70-120 (Leisa Mary, RN) Resting Tone (Palpate): Relaxed (Leisa Mary, RN) Monitor Mode: External US (Leisa Mary, RN) FHR Baseline Rate : 140 (Leisa Mary, RN) Variability: Moderate 6-25 bpm (Leisa Mary, RN) Accelerations: None (Leisa Mary, RN) Decelerations: None (Leisa Mary, RN) Pitocin (milliunit): Pitocin Remains (milliunits) @ (Annotations: 2) (Leisa Mary, RN) Datetime: 07/25/2016 03:01 NBP Sys/Carolyne/Mean (mmHg): 124 (QS system process) : 68 (QS system process) : 88 (QS system process) Pulse: 68 (QS system process) LaborFlag: Antepartum (QS system process) Datetime: 07/25/2016 03:00 Monitor Mode: External (Leisa Mary, RN) Frequency (min): 2-3 (Leisa Mary, RN) Quality: Moderate (Leisa Mary, RN) Duration (sec): 50-110 (Leisa Mary, RN) Resting Tone (Palpate): Relaxed (Leisa Mary, RN) Monitor Mode: External US (Leisa Mary, RN) FHR Baseline Rate : 135 (Leisa Mary, RN) Variability: Moderate 6-25 bpm (Leisa Mary, RN) Accelerations: 15X15 (Leisa Mary, RN) Decelerations: None (Leisa Mary, RN) Pitocin (milliunit): Pitocin Remains (milliunits) @ (Annotations: 2) (Leisa Mary, RN) Datetime: 07/25/2016 02:51 Pitocin (milliunit): Pitocin Started (milliunits) @ 2 (Leisa Mary, RN) Datetime: 07/25/2016 02:50 Monitor Interventions for UA: [place] Adjusted (Leisa Mary, RN) Datetime: 07/25/2016 02:46 NBP Sys/Carolyne/Mean (mmHg): 123 (QS system process) : 65 (QS system process) : 86 (QS system process) Pulse: 65 (QS system process) LaborFlag: Antepartum (QS system process) Datetime: 07/25/2016 02:45 Monitor Mode: External (Leisa Mary, RN) Frequency (min): 2-3 (Leisa Mary, RN) Quality: Moderate (Leisa Mary, RN) Duration (sec): 70-120 (Leisa Mary, RN) Resting Tone (Palpate): Relaxed (Leisa Hernandez, RN) Monitor Mode: External US (Leisa Hernandez, RN) FHR Baseline Rate : 130 (Leisa Mary, RN) Variability: Moderate 6-25 bpm (Leisa Mary, RN) Accelerations: 10X10 (Leisa Mary, RN) Decelerations: Variable (Leisa Mary, RN) Datetime: 07/25/2016 02:35 Dilatation (cm): 2.0 (Leisa Hernandez RN) Effacement (%): 100 (Leisa Hernandez RN) Station: -1 (Leisa Hernandez, RN) Exam by: Yokasta Hernandez RN (Leisa Hernandez, RN) Dilatation (cm): 1-2 cm (Leisa Hernandez RN) Effacement: >80_ effaced (Leisa Hernandez RN) Station: minus 1 to 0 (Leisa Hernandez RN) Consistency: Medium (Leisa Hernandez, RN) Position: Anterior (Leisa Hernandez, RN) Total Barth's Score: 9 (QS system process) : 9-14 = Usually no failure for induction (QS system process) Datetime: 07/25/2016 02:32 IV/Blood Work: IV Infusing per Order (Leisa Hernandez RN) Patient Position/Activity: Right Lateral (Leisa Hernandez RN) Patient Care Comments: LR infusing 125 mL/ hr after 400 mL bolus D5LR (Leisa Velizsel, RN) Datetime: 07/25/2016 02:30 NBP Sys/Carolyne/Mean (mmHg): 119 (QS system process) : 58 (QS system process) : 81 (QS system process) Pulse: 72 (QS system process) Monitor Mode: External (Leisa Mary, RN) Frequency (min): 2-3 (Leisa Mary, RN) Quality: Moderate (Leisa Mary, RN) Duration (sec): 60-100 (Leisa Mary, RN) Resting Tone (Palpate): Relaxed (Leisa Mary, RN) Monitor Mode: External US (Leisa Mary, RN) FHR Baseline Rate : 135 (Leisa Mary, RN) Variability: Moderate 6-25 bpm (Leisa Mary, RN) Accelerations: None (Leisa Mary, RN) Decelerations: None (Leisa Mary, RN) LaborFlag: Antepartum (QS system process) Datetime: 07/25/2016 02:16 NBP Sys/Carolyne/Mean (mmHg): 120 (QS system process) : 66 (QS system process) : 86 (QS system process) Pulse: 68 (QS system process) LaborFlag: Antepartum (QS system process) Datetime: 07/25/2016 02:15 Monitor Mode: External (Leisa Mary, RN) Frequency (min): 2-3 (Leisa Mary, RN) Quality: Moderate (Leisa Mary, RN) Duration (sec): 60-160 (Leisa Mary, RN) Resting Tone (Palpate): Relaxed (Leisa Mary, RN) Monitor Mode: External US (Leisa Mary, RN) FHR Baseline Rate : 135 (Leisa Mary, RN) Variability: Moderate 6-25 bpm (Leisa Mary, RN) Accelerations: None (Leisa Mary, RN) Decelerations: None (Leisa Mary, RN) Datetime: 07/25/2016 02:14 Patient Care Comments: bolus D5LR started (Leisa Mary, RN) Datetime: 07/25/2016 02:00 NBP Sys/Carolyne/Mean (mmHg): 118 (QS system process) : 65 (QS system process) : 85 (QS system process) Pulse: 70 (QS system process) Monitor Mode: External (Leisa Mary, RN) Frequency (min): 2-3 (Leisa Mary, RN) Quality: Moderate (Leisa Mary, RN) Duration (sec): 60-180 (Leisa Mary, RN) Resting Tone (Palpate): Relaxed (Leisa Mary, RN) Monitor Mode: External US (Leisa Mary, RN) FHR Baseline Rate : 135 (Leisa Mary, RN) Variability: Moderate 6-25 bpm (Leisa Mary, RN) Accelerations: 10X10 (Leisa Mary, RN) Decelerations: None (Leisa Mary, RN) LaborFlag: Antepartum (QS system process) Datetime: 07/25/2016 01:47 NBP Sys/Carolyne/Mean (mmHg): 117 (QS system process) : 62 (QS system process) : 83 (QS system process) Pulse: 71 (QS system process) LaborFlag: Antepartum (QS system process) Datetime: 07/25/2016 01:45 Pulse: 73 (QS system process) Pulse: 71 (QS system process) SpO2 (%): 93 (QS system process) Monitor Mode: External (Leisa Mary, RN) Frequency (min): 1-3 (Leisa Mary, RN) Quality: Moderate (Leisa Mary, RN) Duration (sec): 50-100 (Leisa Mary, RN) Resting Tone (Palpate): Relaxed (Leisa Mary, RN) Monitor Mode: External US (Leisa Mary, RN) FHR Baseline Rate : 135 (Leisa Mary, RN) Variability: Moderate 6-25 bpm (Leisa Mary, RN) Accelerations: None (Leisa Mary, RN) Decelerations: None (Leisa Mary, RN) LaborFlag: Antepartum (QS system process) Datetime: 07/25/2016 01:40 Pulse: 72 (QS system process) SpO2 (%): 94 (QS system process) LaborFlag: Antepartum (QS system process) Datetime: 07/25/2016 01:35 Pulse: 73 (QS system process) SpO2 (%): 94 (QS system process) LaborFlag: Antepartum (QS system process) Datetime: 07/25/2016 01:31 NBP Sys/Carolyne/Mean (mmHg): 135 (QS system process) : 77 (QS system process) : 100 (QS system process) Pulse: 69 (QS system process) LaborFlag: Antepartum (QS system process) Datetime: 07/25/2016 01:30 Pulse: 68 (QS system process) SpO2 (%): 95 (QS system process) Monitor Mode: External (Leisa Mary, RN) Frequency (min): 2-3 (Leisa Mary, RN) Quality: Moderate (Leisa Mary, RN) Duration (sec): 60-90 (Leisa Mary, RN) Resting Tone (Palpate): Relaxed (Leisa Mary, RN) Monitor Mode: External US (Leisa Mary, RN) FHR Baseline Rate : 140 (Leisa Mary, RN) Variability: Moderate 6-25 bpm (Leisa Mary, RN) Accelerations: None (Leisa Mary, RN) Decelerations: None (Leisa Mary, RN) LaborFlag: Antepartum (QS system process) Datetime: 07/25/2016 01:29 Pulse: 70 (QS system process) SpO2 (%): 93 (QS system process) LaborFlag: Antepartum (QS system process) Datetime: 07/25/2016 01:25 Pulse: 69 (QS system process) SpO2 (%): 96 (QS system process) LaborFlag: Antepartum (QS system process) Datetime: 07/25/2016 01:23 Pulse: 68 (QS system process) SpO2 (%): 93 (QS system process) LaborFlag: Antepartum (QS system process) Datetime: 07/25/2016 01:20 Pulse: 70 (QS system process) SpO2 (%): 96 (QS system process) LaborFlag: Antepartum (QS system process) Datetime: 07/25/2016 01:15 Pulse: 89 (QS system process) SpO2 (%): 96 (QS system process) Monitor Mode: External (Leisa Mary, RN) Frequency (min): 1.5-3 (Leisa Mary, RN) Quality: Moderate (Leisa Mary, RN) Duration (sec): 90-100 (Leisa Mary, RN) Resting Tone (Palpate): Relaxed (Leisa Mary, RN) Monitor Mode: External US (Leisa Mary, RN) FHR Baseline Rate : 140 (Leisa Mary, RN) Variability: Moderate 6-25 bpm (Leisa Mary, RN) Accelerations: None (Leisa Mary, RN) Decelerations: None (Leisa Mary, RN) LaborFlag: Antepartum (QS system process) Datetime: 07/25/2016 01:14 NBP Sys/Carolyne/Mean (mmHg): 138 (QS system process) : 78 (QS system process) : 100 (QS system process) Pulse: 69 (QS system process) Respirations: 15 (Leisa Hernandez RN) Temperature (F): 98.6 (Leisa Hernandez RN) Temperature (C): 37.0 (QS system process) Pain Scale: 1 (Leisa Hernandez RN) Pain Presence: Intermittent (Leisa Hernandez RN) Pain Type: Contraction (Leisa Hernandez RN) Pain Location: Abdomen (Leisa Hernandez RN) Pain Goal: 1 (Leisa Hernandez RN) Pain Coping: Talking Through Contractions (Leisa Hernandez RN) IV/Blood Work: IV Infusing per Order (Leisa Hernandez RN) Patient Position/Activity: Left Lateral (Leisa Hernandez RN) Patient Care Comments: TEDs applied d/t immobility and swelling (Leisa Hernandez RN) LaborFlag: Antepartum (QS system process) Datetime: 07/25/2016 01:13 NBP Sys/Carolyne/Mean (mmHg): 137 (QS system process) : 76 (QS system process) : 97 (QS system process) Pulse: 83 (QS system process) Pulse: 84 (QS system process) SpO2 (%): 88 (QS system process) LaborFlag: Antepartum (QS system process) Datetime: 07/25/2016 01:12 NBP Sys/Carolyne/Mean (mmHg): 138 (QS system process) : 72 (QS system process) : 97 (QS system process) Pulse: 80 (QS system process) LaborFlag: Antepartum (QS system process) Datetime: 07/25/2016 01:11 NBP Sys/Carolyne/Mean (mmHg): 131 (QS system process) : 70 (QS system process) : 93 (QS system process) Pulse: 71 (QS system process) LaborFlag: Antepartum (QS system process) Datetime: 07/25/2016 01:10 NBP Sys/Carolyne/Mean (mmHg): 133 (QS system process) : 71 (QS system process) : 95 (QS system process) Pulse: 70 (QS system process) Pulse: 68 (QS system process) SpO2 (%): 95 (QS system process) I/O Interventions: Ambrosio Cath Inserted (Leisa Hernandez RN) Patient Care Comments: ambrosio catheter inserted with sterile technique by Yokasta Hernandez RN (Leisa Hernandez RN) Epidural Procedure Other: Pump Started (Leisa Hernandez RN) LaborFlag: Antepartum (QS system process) Datetime: 07/25/2016 01:09 NBP Sys/Carolyne/Mean (mmHg): 137 (QS system process) : 77 (QS system process) : 99 (QS system process) Pulse: 69 (QS system process) LaborFlag: Antepartum (QS system process) Datetime: 07/25/2016 01:08 NBP Sys/Carolyne/Mean (mmHg): 135 (QS system process) : 75 (QS system process) : 98 (QS system process) Pulse: 69 (QS system process) LaborFlag: Antepartum (QS system process) Datetime: 07/25/2016 01:07 NBP Sys/Carolyne/Mean (mmHg): 143 (QS system process) : 80 (QS system process) : 103 (QS system process) Pulse: 72 (QS system process) Pulse: 71 (QS system process) SpO2 (%): 94 (QS system process) LaborFlag: Antepartum (QS system process) Datetime: 07/25/2016 01:06 NBP Sys/Carolyne/Mean (mmHg): 144 (QS system process) : 84 (QS system process) : 107 (QS system process) Pulse: 81 (QS system process) LaborFlag: Antepartum (QS system process) Datetime: 07/25/2016 01:05 NBP Sys/Carolyne/Mean (mmHg): 145 (QS system process) : 86 (QS system process) : 109 (QS system process) Pulse: 76 (QS system process) Pulse: 81 (QS system process) SpO2 (%): 96 (QS system process) LaborFlag: Antepartum (QS system process) Datetime: 07/25/2016 01:04 NBP Sys/Carolyne/Mean (mmHg): 139 (QS system process) : 76 (QS system process) : 101 (QS system process) Pulse: 77 (QS system process) LaborFlag: Antepartum (QS system process) Datetime: 07/25/2016 01:03 NBP Sys/Carolyne/Mean (mmHg): 140 (QS system process) : 78 (QS system process) : 102 (QS system process) Pulse: 78 (QS system process) LaborFlag: Antepartum (QS system process) Datetime: 07/25/2016 01:02 NBP Sys/Carolyne/Mean (mmHg): 142 (QS system process) : 77 (QS system process) : 103 (QS system process) Pulse: 76 (QS system process) LaborFlag: Antepartum (QS system process) Datetime: 07/25/2016 01:01 NBP Sys/Carolyne/Mean (mmHg): 137 (QS system process) : 75 (QS system process) : 99 (QS system process) Pulse: 74 (QS system process) LaborFlag: Antepartum (QS system process) Datetime: 07/25/2016 01:00 NBP Sys/Carolyne/Mean (mmHg): 139 (QS system process) : 79 (QS system process) : 102 (QS system process) Pulse: 74 (QS system process) Pulse: 81 (QS system process) SpO2 (%): 96 (QS system process) Contraction Comments: MICHAEL ctx accurately during epidural procedure (Leisa Mary, RN) Monitor Mode: External US (Leisa Mary, RN) FHR Baseline Rate : 135 (Leias Mary, RN) Variability: Moderate 6-25 bpm (Leisa Mary, RN) Accelerations: None (Leisa Mary, RN) Decelerations: None (Leisa Mary, RN) LaborFlag: Antepartum (QS system process) Datetime: 07/25/2016 00:59 NBP Sys/Carolyne/Mean (mmHg): 137 (QS system process) : 73 (QS system process) : 99 (QS system process) Pulse: 71 (QS system process) Epidural Procedure: Test Dose (Leisa Mary, RN) LaborFlag: Antepartum (QS system process) Datetime: 07/25/2016 00:58 Epidural Procedure: Cath Placed (Leisa Mary, RN) Datetime: 07/25/2016 00:55 Pulse: 84 (QS system process) SpO2 (%): 97 (QS system process) LaborFlag: Antepartum (QS system process) Datetime: 07/25/2016 00:51 Procedures: Consents Signed (Leisa Mary, RN) Datetime: 07/25/2016 00:50 Pulse: 76 (QS system process) SpO2 (%): 97 (QS system process) LaborFlag: Antepartum (QS system process) Datetime: 07/25/2016 00:49 NBP Sys/Carolyne/Mean (mmHg): 146 (QS system process) : 77 (QS system process) : 105 (QS system process) Pulse: 84 (QS system process) LaborFlag: Antepartum (QS system process) Datetime: 07/25/2016 00:46 Procedure Verify: Correct Patient Identity; Correct Side and Site are Marked; Accurate Procedure Consent Form; Agreement on Procedure to be Done; Correct Patient Position; Relevant Images and Results are Properly Labeled and Displayed; Addressed Need to Administer Antibiotics or Fluids for Irrigation; Safety Precautions Based on Patient History or Medication Use (Leisa Hernandez RN) Anesthesia Plans: Epidural (Leisa Hernandez RN) Epidural Positioning: Sitting (Leisa Hernandez RN) Anesthesia Comments: Dr Tinajero at bedside for epidural placement (Leisa Mary, RN) Datetime: 07/25/2016 00:45 Monitor Mode: External (Leisa Mary, RN) Frequency (min): 2-3 (Leisa Mary, RN) Quality: Moderate (Leisa Mary, RN) Duration (sec): 60-90 (Leisa Mary, RN) Resting Tone (Palpate): Relaxed (Leisa Mary, RN) Monitor Mode: External US (Leisa Mary, RN) FHR Baseline Rate : 135 (Leisa Mary, RN) Variability: Moderate 6-25 bpm (Leisa Mary, RN) Accelerations: None (Leisa Mary, RN) Decelerations: None (Leisa Mary, RN) Datetime: 07/25/2016 00:44 Procedure Verify: Correct Patient Identity; Correct Side and Site are Marked; Accurate Procedure Consent Form; Agreement on Procedure to be Done; Relevant Images and Results are Properly Labeled and Displayed; Addressed Need to Administer Antibiotics or Fluids for Irrigation; Safety Precautions Based on Patient History or Medication Use (Leisa Mary, RN) Anesthesia Plans: Epidural (Leisa Hernandez RN) Anesthesia Comments: Call placed to Dr Tinajero, in L_D OR, for epidural placement (Leisa Hernandez RN) Communication: Call/Page Placed to Provider (Leisa Hernandez RN) Datetime: 07/25/2016 00:40 Communication: Report Given to @ Dr Lock (Leisa Hernandez RN) Communication Comments: Report to Dr Lock, on unit, re: pt SVE and pain. Orders for epidural and pitocin prn for augmentation per protocol (Leisa Hernandez RN) Datetime: 07/25/2016 00:35 Pain Scale: 5 (Leisa Hernandez RN) Pain Coping: Breathing Through Contractions; Requesting Pain Medication or Epidural (Leisa Hernandez RN) Dilatation (cm): 2.0 (Leisa Hernandez RN) Effacement (%): 90 (Leisa Hernandez RN) Station: -1 (Leisa Hernandez RN) Exam by: Yokasta Hernandez RN (Leisa Hernandez RN) IV/Blood Work: IV Bolus Started (Leisa Hernandez RN) Procedure Verify: Correct Patient Identity; Correct Side and Site are Marked; Accurate Procedure Consent Form; Agreement on Procedure to be Done; Relevant Images and Results are Properly Labeled and Displayed; Addressed Need to Administer Antibiotics or Fluids for Irrigation; Safety Precautions Based on Patient History or Medication Use (Leisa Hernandez RN) Anesthesia Plans: Epidural (Leisa Hernandez RN) LaborFlag: Antepartum (QS system process) Datetime: 07/25/2016 00:30 Monitor Mode: External (Leisa Hernandez RN) Frequency (min): 2-2.5 (Leisa Hernandez RN) Quality: Moderate (Leisa Hernandez RN) Duration (sec): 80-100 (Leisa Hernandez RN) Resting Tone (Palpate): Relaxed (Leisa Hernandez RN) Monitor Mode: External US (Leisa Hernandez RN) FHR Baseline Rate : 135 (Leisa Hernandez RN) Variability: Moderate 6-25 bpm (Leisa Hernandez, RN) Accelerations: None (Leisa Hernandez RN) Decelerations: None (Leisa Hernandez RN) Datetime: 07/25/2016 00:15 Monitor Mode: External (Leisa Mary, RN) Frequency (min): 2-3 (Leisa Mary, RN) Quality: Mild/Moderate (Leisa Mary, RN) Duration (sec): 60-110 (Leisa Mary, RN) Resting Tone (Palpate): Relaxed (Leisa Mary, RN) Monitor Mode: External US (Leisa Mary, RN) FHR Baseline Rate : 135 (Leisa Mary, RN) Variability: Moderate 6-25 bpm (Leisa Mary, RN) Accelerations: None (Leisa Mary, RN) Decelerations: None (Leisa Mary, RN) Datetime: 07/25/2016 00:14 Pain Assessment Comments: 2.5/5; pt reporting some pain relief (Leisa Mary, RN) Communication: RN at Bedside (Leisa Mary, RN) LaborFlag: Antepartum (QS system process) Datetime: 07/25/2016 00:00 Monitor Mode: External (Leisa Mary, RN) Frequency (min): 1.5-3 (Leisa Mary, RN) Quality: Mild/Moderate (Leisa Mary, RN) Duration (sec): 60-120 (Leisa Mary, RN) Resting Tone (Palpate): Relaxed (Leisa Mary, RN) Monitor Mode: External US (Leisa Mary, RN) FHR Baseline Rate : 135 (Leisa Mary, RN) Variability: Moderate 6-25 bpm (Leisa Mary, RN) Accelerations: None (Leisa Mary, RN) Decelerations: None (Leisa Mary, RN) Datetime: 07/24/2016 23:45 Monitor Mode: External (Leisa Mary, RN) Frequency (min): 1.5-3 (Leisa Mary, RN) Quality: Mild/Moderate (Leisa Mary, RN) Duration (sec): 50-120 (Leisa Mary, RN) Resting Tone (Palpate): Relaxed (Leisa Mary, RN) Monitor Mode: External US (Leisa Mary, RN) FHR Baseline Rate : 145 (Leisa Mary, RN) Variability: Moderate 6-25 bpm (Leisa Mary, RN) Accelerations: None (Leisa Mary, RN) Decelerations: None (Leisa Mary, RN) Datetime: 07/24/2016 23:44 Pain Scale: 3 (Leisa Mary, RN) Pain Type: Contraction (Leisa Mary, RN) Pain Location: Abdomen (Leisa Mary, RN) Pain Relief Measures: Pain Medication Given (Leisa Mary, RN) Pain Coping: Breathing Through Contractions (Leisa Mary, RN) Nausea/Vomiting: Present (Leisa Mary, RN) Medication Comments: nubain 10 mg IV, phenergan 12.5 mg IV (Leisa Mary, RN) LaborFlag: Antepartum (QS system process) Datetime: 07/24/2016 23:31 IV/Blood Work: IV Infusing per Order (Leisa Mary, RN) Datetime: 07/24/2016 23:30 Monitor Mode: External (Leisa Mary, RN) Frequency (min): 2-2.5 (Leisa Mary, RN) Quality: Mild/Moderate (Leisa Mary, RN) Duration (sec): 60-120 (Leisa Mary, RN) Resting Tone (Palpate): Relaxed (Leisa Mary, RN) Monitor Mode: External US (Leisa Mary, RN) FHR Baseline Rate : 140 (Leisa Mary, RN) Variability: Moderate 6-25 bpm (Leisa Mary, RN) Accelerations: None (Leisa Mary, RN) Decelerations: None (Leisa Mary, RN) Datetime: 07/24/2016 23:18 Communication Comments: Dr Lock on unit, report given. Orders for nubain 10 mg and phenergan 12.5 mg IVP x1 for pain prn (Leisa Mary, RN) Datetime: 07/24/2016 23:15 Monitor Mode: External (Leisa Mary, RN) Frequency (min): 3 (Leisa Mary, RN) Quality: Mild/Moderate (Leisa Mary, RN) Duration (sec): 90-110 (Leisa Mary, RN) Resting Tone (Palpate): Relaxed (Leisa Mary, RN) Monitor Mode: External US (Leisa Mary, RN) FHR Baseline Rate : 140 (Leisa Mary, RN) Variability: Moderate 6-25 bpm (Leisa Mary, RN) Accelerations: 10X10 (Leisa Mary, RN) Decelerations: None (Leisa Mary, RN) Datetime: 07/24/2016 23:06 Pain Scale: 3 (Leisa Hernandez RN) Pain Presence: Intermittent (Leisa Hernandez RN) Pain Type: Contraction (Leisa Hernandez RN) Pain Location: Abdomen (Leisa Hernandez RN) Dilatation (cm): 1.5 (Leisa Hernandez RN) Effacement (%): 70 (Leisa Hernandez RN) Station: -2 (Leisa Hernandez RN) Exam by: Yokasta Hernandez RN (Leisa Mary, RN) Pain Management: IV Narcotics; Epidural (Leisa Rosenbergl, RN) LaborFlag: Antepartum (QS system process) Datetime: 07/24/2016 23:02 Membrane Status: Meconium (Leisa Mary, RN) Datetime: 07/24/2016 23:00 Monitor Mode: External (Leisa Mary, RN) Frequency (min): 2-4 (Leisa Mary, RN) Quality: Mild/Moderate (Leisa Mary, RN) Duration (sec): 100-140 (Leisa Mary, RN) Resting Tone (Palpate): Relaxed (Leisa Mary, RN) Monitor Mode: External US (Leisa Mary, RN) FHR Baseline Rate : 125 (Leisa Mary, RN) Variability: Moderate 6-25 bpm (Leisa Mary, RN) Accelerations: 15X15 (Leisa Mary, RN) Decelerations: None (Leisa Mary, RN) Datetime: 07/24/2016 22:52 Hygiene: Underpad Changed; Peripad Changed; Gown Changed; Linens Changed (Leisa Mary, RN) Datetime: 07/24/2016 22:49 I/O Interventions: Up to BR (Leisa Mary, RN) Datetime: 07/24/2016 22:46 Membrane Status: Ruptured (Leisa Mary, RN) Membranes Rupture Method: Spontaneous (Leisa Mary, RN) Amniotic Fluid Color: Light Meconium (Leisa Mary, RN) Amniotic Fluid Amount: Moderate (Leisa Mary, RN) Amniotic Fluid Odor: Normal (Leisa Mary, RN) Membrane Comments: SROM, then pt got self up to BR. (Leisa Mary, RN) Datetime: 07/24/2016 22:30 Monitor Mode: External (Leisa Mary, RN) Frequency (min): 2-6 (Leisa Mary, RN) Quality: Mild/Moderate (Leisa Mary, RN) Duration (sec): 50-120 (Leisa Mary, RN) Resting Tone (Palpate): Relaxed (Leisa Mary, RN) Monitor Mode: External US (Leisa Mary, RN) FHR Baseline Rate : 140 (Leisa Mary, RN) Variability: Moderate 6-25 bpm (Leisa Mary, RN) Accelerations: 15X15 (Leisa Mary, RN) Decelerations: None (Leisa Mary, RN) Datetime: 07/24/2016 22:00 Monitor Mode: External (Leisa Hernandez, RN) Frequency (min): 2-3 (Leisa Hernandez RN) Quality: Mild/Moderate (Leisa Hernandez RN) Duration (sec): 60-120 (Leisa Hernandez, RN) Resting Tone (Palpate): Relaxed (Leisa Hernandez RN) Monitor Mode: External US (Leisa Hernandez RN) FHR Baseline Rate : 135 (Leisa Hernandez RN) Variability: Moderate 6-25 bpm (Leisa Hernandez RN) Accelerations: 15X15 (Leisa Hernandez, RN) Decelerations: None (Leisa Hernandez RN)
[2016-07-25] MEDS ORDERED: OXYTOCIN/NORMAL SALINE 1,000 ML IV PRN (09:38)
[2016-07-25] MEDS ORDERED: ZOLPIDEM TARTRATE 5 MG TABLET PO PRN (09:38)
[2016-07-25] MEDS ORDERED: ACETAMINOPHEN WITH CODEINE #3 TABLET PO PRN ×2 (09:38)
[2016-07-25] MEDS ORDERED: MISOPROSTOL 0.2 MG TABLET PR PRN (09:38)
[2016-07-25] MEDS ORDERED: BENZOCAINE/MENTHOL AEROSOL SPRAY 56 ML TOP PRN (09:38)
[2016-07-25] MEDS ORDERED: DIPH/PERTUSS(ACELL)/TETANUS VAC/PF 0.5 ML SYR (>=10YO) IM PRN (09:38)
[2016-07-25] MEDS ORDERED: DIBUCAINE 1% OINTMENT 28 GM TP PRN (09:38)
[2016-07-25] MEDS ORDERED: MEASLES,MUMPS&RUBELLA VACC/PF 0.5 ML VIAL SUBCUT PRN (09:38)
--- NOTE | 2016-07-25 09:43 | Admission Physical ---
Datetime Report Generated by CPN: 07/25/2016 09:42 CURRENT ADMISSION Chief Complaint: Scheduled Induction of Labor Indication for Induction: Post Dates Admit Plan: Initiate Labor Induction Protocol ALLERGIES Medication Allergies: No Medication Allergies: No Known Allergies (07/23/2016) Latex: No Latex Allergies OBSTETRICAL HISTORY EDC: 07/16/2016 00:00 : 3 Para: 0 Term: 0 : 0 SAB: 2 IAB: 0 Ectopic: 0 Livin Cesareans: 0 VBACs: 0 Multiple Births: 0 Gestational Diabetes: No Rh Sensitization: No Incompetent Cervix: No BARB: No Infertility: No ART Treatment: No Uterine Anomaly: No IUGR: No Hx Previous C/S: No Macrosomia: No Hx Loss/Stillborn: No PIH: No Hx : No Placenta Previa/Abruption: No Depression/PP Depression: No PTL/PROM: No Post Hemorrhage: No Current Procedures: Ultrasound; NST Obstetrical History Comments: G1: SAB G2: SAB G3: Current SEE RECORDS Alcohol: No Marijuana : No Cocaine: No Other Illicit Drugs: No Cigarettes: Former Smoker. [id number] MEDICAL HISTORY Diabetes: No Blood Transfusion: No Pulmonary Disease (Asthma, TB): No Breast Disease: No Hypertension: No Informatics Nurse Specialist Surgery: No Heart Disease: No Hosp/Surgery: Yes Autoimmune Disorder: No Anesthetic Complications: No Kidney Disease: No Abnormal Pap Smear: No Neuro/Epilepsy: No Psychiatric Disorders: No Other Medical Diseases: No Hepatitis/Liver Disease: No Significant Family History: No Varicosities/Phlebitis: No Trauma/Violence : No Thyroid Dysfunction: No Medical History Comments: surgical: cyst removal on toe, wisdom teeth, tonsils INFECTIOUS HISTORY Gonorrhea: No Genital Herpes: No Chlamydia: No Tuberculosis: No Syphilis: No Hepatitis: No HIV/AIDS Exposure: No Rash or Viral Illness: No HPV: No PHYSICAL EXAM General: Normal HEENT: Normal Neurologic: Normal Thyroid: Normal Heart: Normal Lungs: Normal Breast: Normal Back: Normal Abdomen: Normal Genitourinary Exam: Normal Extremities: Normal DTRs: Normal Pelvic Type: Adequate Vital Signs: Reviewed; Within Normal Limits VAGINAL EXAM Dilatation: 1 Effacement: 80 Station: -2 MEMBRANES Pooling: Negative Membranes: Intact FETUS A EGA: 41.1 Monitoring: External US FHR- Baseline: 150 Variability: Moderate 6-25bpm Accelerations: 15X15 FHR Category: Category I Estimated Weight (gm): 4000 Presentation: Vertex PLANS FOR LABOR AND DELIVERY Labor and Delivery: None Pain Management: Epidural Feeding Preference: Breast Benefit of Breast Feed Discussed: Yes Circumcision: Yes INFORMED CONSENT Informed Consent Obtained: Induction of Labor; Risks, Benefits and Alternatives Discussed Signature: with User ID: [email or web address]
--- NOTE | 2016-07-25 10:04 | Delivery Summary ---
Del Sum A-C Datetime Report Generated by CPN: 07/25/2016 10:03 ADMISSION DATA Chief Complaint: Scheduled Induction of Labor Indication for Induction: Post Dates Admission Impression: Term, Intrauterine DELIVERY PERSONNEL Delivery Doctor:: Rosa Lock MD Labor and Delivery Nurse:: Leisa Hernandez RNquality control clerk Nurse:: Loretta Minor RN Nursery Nurse:: Sonia Celestin RN Online Community Manager/BOX SEALING MACHINE CATCHER: Philly Mireles CNA MATERNAL INFORMATION Delivery Anesthesia: Epidural Medications After Delivery: Pitocin Drip 20 Units/1000ml NSS; Other-Please Comment Meds After Delivery Comment: pitocin 20 units in 1000 mL NSS and cytotec 1000 mcg DC after delivery of placenta Maternal Complications: None Provider Comments: over lac as above. live male infant ap 8/9. spontaneous intact placenta 3vc. compound left arm LABOR SUMMARY EDC: 07/16/2016 00:00 No. Babies in Womb: 1 Attempted: No Labor Anesthesia: Epidural LABOR INFORMATION Reason for Induction: Post Dates Onset of Labor: 07/24/2016 22:46 Complete Dilatation: 07/25/2016 05:02 Cervical Ripening Agents: Cervidil; Cytotec @ Oxytocin: Induction Group B Beta Strep: Negative Antibiotics # of Doses: 0 Steroids Given: None Reason Steroids Not Administered: Not Applicable MEMBRANES Membranes Rupture Method: Spontaneous Rupture of Membranes: 07/24/2016 22:46 Length of Rupture (hr): 7.25 Amniotic Fluid Color: Light Meconium Amniotic Fluid Amount: Moderate Amniotic Fluid Odor: Normal STAGES OF LABOR Stage 1 hr: 6 Stage 1 min: 16 Stage 2 hr: 0 Stage 2 min: 59 Stage 3 hr: 0 Stage 3 min: 3 Total Time in Labor hr: 7 Total Time in Labor min: 18 VAGINAL DELIVERY Episiotomy: None Laceration Extension: First Degree Laceration Type: Perineal; Vaginal Laceration Repair: Yes Laceration Repair Note: single interrupted stitch placed in left vaginal and perineal for hemastasis Sponge Count Correct: N/A Sharps Count Correct: Yes CSECTION DELIVERY Primary Indication: N/A Secondary Indication: N/A CSection Incidence: N/A Labor: N/A Elective: N/A CSection Incision: N/A BABY A INFORMATION Infant Delivery Date/Time: 07/25/2016 06:01 Method of Delivery: Vaginal Born in Route : No : N/A Forceps: N/A Vacuum Extraction: N/A Shoulder Dystocia : No PRESENTATION/POSITION BABY A Presentation: Cephalic Cephalic Presentation: Vertex Vertex Position: Right Occipital Anterior Breech Presentation: N/A PLACENTA INFORMATION BABY A Placenta Delivery Time : 07/25/2016 06:04 Placenta Method of Delivery: Spontaneous Placenta Status: Delivered SCORES BABY A Heart Rate 1 min: >100 bpm Resp Effort 1 min: Good Cry Reflex Irritability 1 min: Cough or Sneeze or Pulls Away Muscle Tone 1 min: Active Motion Color 1 min: Blue/Pale Resuscitation Effort 1 min: Tactile Stimulation SCORE 1 MIN: 8 Heart Rate 5 min: >100 bpm Resp Effort 5 min: Good Cry Reflex Irritability 5 min: Cough or Sneeze or Pulls Away Muscle Tone 5 min: Active Motion Color 5 min: Body [place], Extremities Blue Resuscitation Effort 5 min: Tactile Stimulation SCORE 5 MIN: 9 INFANT INFORMATION BABY A Gestational Age at Delivery: 41.2 Gestational Status: Late Term- 41- 41.6 Weeks Infant Outcome : Liveborn Infant Condition : Stable Infant Sex: Male IDENTIFICATION BABY A Infant Verification Date/Time: 07/25/2016 07:01 ID Band Number: [id number] Mother's Name Verified: Yes RN Verifying Infant: KKrystin VelizMary, RN Additional Verifying Personnel: CKrystin Minor, RN WEIGHT/LENGTH BABY A Birthweight (gm): 4330 Infant Weight (lb): 9 Weight (oz): 9 Length (in): 21.75 Infant Length (cm): 55.25 CORD INFORMATION BABY A No. Cord Vessels: 3 Nuchal Cord : N/A Cord Blood Taken: Yes-For Storage (Mom's Blood type +) Suction: Mouth; Nose ASSESSMENT BABY A Infant Complications: Meconium Physical Findings at Delivery: Within Normal Limits Respirations: Appears Normal Skin to Skin: Yes Skin to Skin Time (min): 60 Corrosion Control Specialist/ALS Called : No Infant Care By: Patrick Celestin RN Transferred To: Remains with Mother BABY B INFORMATION : N/A SIGNATURES Signature: with User ID: [email or web address]
[2016-07-25] MEDS: PRENATAL VITAMIN W-O CA NO5/FE FUMARATE/FA CAPSULE PO SCH (10:05)
[2016-07-25] MEDS: SENNOSIDES/DOCUSATE 8.6-50 MG 1 EACH TABLET PO SCH (10:05)
[2016-07-25] MEDS: FERROUS SULFATE 325 MG TABLET PO SCH ×2 (10:05→17:57)
[2016-07-25] MEDS: DOCUSATE SODIUM 100 MG CAPSULE PO SCH ×2 (10:05→17:57)
[2016-07-25] MEDS ORDERED: INFLUENZA ADLT QUAD (36MOS+) 2016-17 VAC 0.5 ML SYR IM PRN (10:53)
[2016-07-25] MEDS: IBUPROFEN 800 MG TABLET PO SCH ×2 (14:07→21:29)
--- NOTE | 2016-07-25 19:01 | L&D Flow Sheet ---
LD Flowsheet Datetime Report Generated by CPN: 07/25/2016 19:00 Datetime: 07/25/2016 09:32 Respirations: 16 (Philly Sheree, RN) Pain Scale: 0 (Philly Sheree, RN) Pain Presence: None/Denies (Philly Sheree, RN) Pain Type: N/A (Philly Shreee, RN) Datetime: 07/25/2016 08:45 NBP Sys/Carolyne/Mean (mmHg): 141 (QS system process) : 72 (QS system process) : 99 (QS system process) Pulse: 71 (QS system process) Datetime: 07/25/2016 08:30 NBP Sys/Carolyne/Mean (mmHg): 146 (QS system process) : 77 (QS system process) : 104 (QS system process) Pulse: 67 (QS system process) Pain Scale: 0 (Philly Bentley, RN) Pain Presence: None/Denies (Philly Bentley, RN) Pain Type: N/A (Philly Bentley, RN) Datetime: 07/25/2016 08:15 NBP Sys/Carolyne/Mean (mmHg): 148 (QS system process) : 79 (QS system process) : 107 (QS system process) Pulse: 71 (QS system process) Datetime: 07/25/2016 08:00 NBP Sys/Carolyne/Mean (mmHg): 143 (QS system process) : 84 (QS system process) : 106 (QS system process) Pulse: 66 (QS system process) Respirations: 17 (Philly Bentley, RN) Temperature (F): 98.3 (Philly Sheree, RN) Temperature (C): 36.8 (QS system process) Pain Scale: 0 (Philly Bentley, RN) Pain Presence: None/Denies (Philly Bentley, RN) Pain Type: N/A (Philly Sheree, RN) Datetime: 07/25/2016 07:48 NBP Sys/Carolyne/Mean (mmHg): 135 (QS system process) : 90 (Annotations: pt bending arm during BP reading) (Philly Bentley, RN) : 107 (QS system process) Pulse: 71 (QS system process) Datetime: 07/25/2016 07:30 Respirations: 17 (Philly Bentley RN) Pain Scale: 0 (Philly Bentley RN) Pain Presence: None/Denies (Philly Bentley RN) Datetime: 07/25/2016 07:00 NBP Sys/Carolyne/Mean (mmHg): 135 (QS system process) : 77 (QS system process) : 97 (QS system process) Pulse: 83 (QS system process) Pain Presence: None/Denies (Leisa Hernandez RN)
[2016-07-26] MEDS: IBUPROFEN 800 MG TABLET PO SCH ×3 (05:09→21:54)
--- NOTE | 2016-07-26 06:01 | L&D Current Admission ---
Current Admit Datetime Report Generated by CPN: 07/26/2016 06:00 ADMISSION INFORMATION Reason for Admission: Induction of Labor (07/24/2016 07:51:Philly Bentley RN) Chief Complaint: Scheduled Induction of Labor (07/24/2016 00:00:Leisa Hernandez RN) Method of Arrival: Ambulatory (07/24/2016 07:51:Philly Bentley RN) Records Available: Yes (07/24/2016 07:51:Philly Bentley RN) BELONGINGS/ADVANCED DIRECTIVES Other Belongings: see signed belongings consent (07/24/2016 07:51:Philly Bentley RN) Disposition of Belongings: Kept with Patient (07/24/2016 07:51:Philly Bentley RN) Advance Direct for Healthcare: No, and Wants No Information (07/24/2016 07:51:Philly Bentley RN) Durable Power of Anode Rebuilder: No (07/24/2016 07:51:Philly Bentley RN) Living Will: No (07/24/2016 07:51:Philly Bentley RN) Organ Donor: Yes (07/24/2016 07:51:Philly Bentley RN) Pt Rights Information Given: Yes (07/24/2016 07:51:Philly Bentley RN) Pt Understands Pt Rights: Yes (07/24/2016 07:51:Philly Bentley RN) LEARNING ASSESSMENT Knowledge Level: Understands L_D Process; Understands Care Activities; Had Pre-Hospital Education; Understands Diagnosis (07/24/2016 07:51:Philly Bentley RN) Barriers to Learning: None (07/24/2016 07:51:Philly Bentley RN) Learning Readiness: Motivated (07/24/2016 07:51:Philly Bentley RN) Learns Best By: 1 to 1 Instruction (07/24/2016 07:51:Philly Bentley RN) Learning Needs: Labor and Delivery Process; Pain Management; Symptoms to Report; Treatment Plan; Medication; Diagnosis; Nutrition; Equipment; Care; Community Resources (07/24/2016 07:51:Philly Bentley RN) DOMESTIC VIOLANCE SCREENING Dom Viol Threatened/Hurt: No (07/24/2016 07:51:Philly Bentley RN) Hx of Abuse/Neglect past 2yrs: No (07/24/2016 07:51:Philly Bentley RN) Feel Unsafe Going Home: No (07/24/2016 07:51:Philly Bentley RN) Addt'l Observ Indicating Abuse: No (07/24/2016 07:51:Philly Bentley RN) Reason Unable to Complete Screen: N/A, Screen Completed (07/24/2016 07:51:Philly Bentley RN) Considered Personal Harm/Suicide: No (07/24/2016 07:51:Philly Bentley RN) NUTRITIONAL/FUNCTIONAL SCREENING Problem with Appetite >5 Days: No (07/24/2016 07:51:Philly Bentley RN) Chew/Swallow Difficulties: No (07/24/2016 07:51:Philly Bentley RN) Inappropriate Wt Gain/Loss: No (07/24/2016 07:51:Philly Bentley RN) Presence Skin Breakdown/Ulcer: No (07/24/2016 07:51:Philly Bentley RN) Special Diet: No (07/24/2016 07:51:Philly Bentley RN) Pt Requests Sales Branch Manager Visit: No (07/24/2016 07:51:Philly Bentley RN) Hx of Any of the Following?: N/A (07/24/2016 07:51:Philly Bentley RN) New Diagnosis of: N/A (07/24/2016 07:51:Philly Bentley RN) Requires Assist w/Ambulation: Janis (07/24/2016 07:51:Philly Bentley RN) Uses Assist Device to Ambulate: No (07/24/2016 07:51:Philly Bentley RN) Pt Requires Help w/ADL's: Janis (07/24/2016 07:51:Philly Bentley RN)
--- NOTE | 2016-07-26 06:01 | L&D General Admission ---
General Admit Datetime Report Generated by CPN: 07/26/2016 06:00 INFORMATION Patient Age: 20 (05/28/2016 14:10:QS system process) EDC: 07/16/2016 00:00 (07/23/2016 14:27:Criselda Harden RN) : 3 (07/23/2016 14:27:Leisa Hernandez RN) Para: 0 (07/23/2016 14:27:Leisa Hernandez RN) Term: 0 (07/23/2016 14:27:Leisa Hernandez RN) : 0 (07/23/2016 14:27:Leisa Hernandez RN) Spontaneous Abortions: 2 (07/23/2016 14:27:Leisa Hernandez RN) Induced Abortions: 0 (07/23/2016 14:27:Leisa Hernandez RN) Livin (07/23/2016 14:27:Leisa Hernandez RN) Cesareans: 0 (07/23/2016 14:27:Leisa Hernandez RN) VBACs: 0 (07/23/2016 14:27:Leisa Hernandez RN) Ectopic: 0 (07/23/2016 14:27:Leisa Hernandez RN) Multiple Births: 0 (07/23/2016 14:27:Leisa Hernandez RN) Baby, Number in Womb: 1 (07/23/2016 14:27:Leisa Hernandez RN) CARE Primary Type Bar And Segment Assembler: [employer] [facility] (07/23/2016 14:27:CARY Johnson) Month of 1st Visit: November (07/23/2016 14:27:Criselda Harden RN) Adequate Care: Yes (07/23/2016 14:27:Criselda Harden RN) Prepregnancy Weight (lb): 175 (07/23/2016 14:27:Criselda Harden RN) Prepregnancy Weight (kg): 79.5 (07/23/2016 14:27:QS system process) Height (in): 71 (07/25/2016 10:08:QS system process) ALLERGIES Medication Allergy: No (07/23/2016 14:27:Leisa Hernandez RN) Medication Allergies: No Known Allergies (07/23/2016) (07/23/2016 23:56:QS system process) Latex Allergy: No Latex Allergies (07/23/2016 14:27:Leisa Hernandez RN) COMMUNICATION Primary Language: Chinese (07/23/2016 14:27:Shantell Camp, RNC) Medical Tx Preferred Language: Chinese (07/23/2016 14:27:Shantell Camp, RNC) Communication Barrier(s): None (07/23/2016 14:27:Shantell Camp, RNC) DEMOGRAPHICS Address: [address] [place] [id number] (05/28/2016 14:10:QS system process) Zipcode: [address] (05/28/2016 14:10:QS system process) Home (05/28/2016 14:10:QS system process) N: [phone] (05/28/2016 14:10:QS system process) Next of Kin Name: XI JACQUES (05/28/2016 14:10:QS system process) Next of Kin (05/28/2016 14:10:QS system process) Next of Kin Relationship: SPO (05/28/2016 14:10:QS system process) Date of : 1995 (05/28/2016 14:10:QS system process) Marital Status: (05/28/2016 14:10:QS system process) Sex: Female (05/28/2016 14:10:QS system process) Race: Other (05/28/2016 14:10:QS system process) Ethnicity: Non- or (05/28/2016 14:10:QS system process) Hindu: Yazidi (05/28/2016 14:10:QS system process) DRUG AND ALCOHOL USE Alcohol: No (07/23/2016 14:27:Leisa Hernandez RN) Cigarettes: Former Smoker. [id number] (07/23/2016 14:27:Leisa Hernandez RN) Marijuana: No (07/23/2016 14:27:Leisa Hernandez RN) Cocaine: No (07/23/2016 14:27:Leisa Hernandez RN) Other Illicit Drugs: No (07/23/2016 14:27:Leisa Hernandez RN) VACCINE HISTORY Influenza Vaccine: No (07/23/2016 14:27:Leisa Hernandez RN) Pneumococcal Vaccine: No (07/23/2016 14:27:Leisa Hernandez RN) Tetanus Vaccine: Yes (07/23/2016 14:27:Leisa Hernandez RN) Tdap Vaccine: Yes (07/23/2016 14:27:Leisa Hernandez RN) Hepatitis B Vaccine: Yes (07/23/2016 14:27:Leisa Hernandez RN) Feeding Preference: Breast (07/23/2016 14:27:Leisa Hernandez RN) Benefit of Breast Feed Discussed: Yes (07/23/2016 14:27:Criselda Harden RN) Circumcision: Yes (07/23/2016 14:27:Leisa Hernandez RN) Classes Attended: No (07/23/2016 14:27:Leisa Hernandez RN) Tubal Ligation: No (07/23/2016 14:27:Leisa Hernandez RN) Tubal Authorization Signed: N/A (07/23/2016 14:27:Leisa Hernandez RN) Consent: No (07/23/2016 14:27:Leisa Hernandez RN) Consent Signed: No (07/23/2016 14:27:Leisa Hernandez RN) Pain Management Plans: Epidural (07/23/2016 14:27:Leisa Hernandez RN) Plans for Labor and Delivery: None (07/23/2016 14:27:Leisa Hernandez RN) Support Person: Xi Jacques (07/23/2016 14:27:Leisa Hernandez RN) Support Person Relationship: (07/23/2016 14:27:Criselda Harden RN) Cultural/Spritual Practice: No (07/23/2016 14:27:Leisa Hernandez RN) Spir/Cult Dietary Needs: No (07/23/2016 14:27:Leisa Hernandez RN) LIVING SITUATION/DISCHARGE PLAN Living Arrangements: House (07/23/2016 14:27:Leisa Hernandez RN) Adequate Access to:: Electric; Heat; Refrigeration; Plumbing/Running water; Phone; Transportation (07/23/2016 14:27:Leisa Hernandez RN) WIC Program: Yes (07/23/2016 14:27:Leisa Hernandez RN) Discharge Dextrine Mixer Person: Xi Jacques (07/23/2016 14:27:Leisa Hernandez RN) Person to Help after Discharge: Xi Jacques (07/23/2016 14:27:Leisa Hernandez RN) Car Seat for Discharge: Yes (07/23/2016 14:27:Leisa Hernandez RN) Adoption Requested: No (07/23/2016 14:27:Leisa Hernandez RN) Pt Contact w/infant Post : N/A (07/23/2016 14:27:Leisa Hernandez RN) LABS Blood Type: A Positive (07/23/2016 14:27:Leisa Hernandez RN) Antibody Screen: negative (07/23/2016 14:27:Leisa Hernandez RN) Rho(G) this : Not Applicable (07/23/2016 14:27:Criselda Harden RN) Hemoglobin: 10.2 L (07/23/2016 23:34:QS system process) Hematocrit: 30.9 L (07/23/2016 23:34:QS system process) MCV: 85 (07/23/2016 23:34:QS system process) Group Beta Strep: Negative (07/23/2016 14:27:Criselda Harden RN) Gonorrhea: Negative (07/23/2016 14:27:Leisa Hernandez RN) Chlamydia: Negative (07/23/2016 14:27:Leisa Hernandez RN) RPR/VDRL: Nonreactive (07/23/2016 14:27:Leisa Hernandez RN) HIV Results: Negative (Annotations: Data stored by N on behalf of user) (07/23/2016 14:27:Criselda Harden RN) Hepatitis B: Negative (07/23/2016 14:27:Leisa Hernandez RN) Rubella: Immune (07/23/2016 14:27:Leisa Hernandez RN) OB/PREVIOUS HISTORY Previous Procedures: None (07/23/2016 14:27:Criselda Harden RN) Current Procedures: Ultrasound; NST (07/23/2016 14:27:Leisa Hernandez RN) History of Previous : No (07/23/2016 14:27:Leisa Hernandez RN) History of Gestational Diabetes: No (07/23/2016 14:27:Leisa Hernandez RN) History of PIH: No (07/23/2016 14:27:Leisa Hernandez RN) History of Incompetent Cervix: No (07/23/2016 14:27:Leisa Hernandez RN) History of Placenta Previa/Abrup: No (07/23/2016 14:27:Leisa Hernandez RN) History of Macrosomia: No (07/23/2016 14:27:Leisa Hernandez RN) History of IUGR: No (07/23/2016 14:27:Leisa Hernandez RN) History of Hemorrhage: No (07/23/2016 14:27:Leisa Hernandez RN) History of Loss/Stillborn: No (07/23/2016 14:27:Leisa Hernandez RN) History of : No (07/23/2016 14:27:Leisa Hernandez RN) History of D (Rh) Sensitization: No (07/23/2016 14:27:Leisa Hernandez RN) History Recurrent Loss/Stillborn: No (07/23/2016 14:27:Leisa Hernandez RN) History Depression/PP Depression: No (07/23/2016 14:27:Leisa Hernandez RN) History of Uterine Anomaly/BARB: No (07/23/2016 14:27:Leisa Hernandez RN) History of Infertility: No (07/23/2016 14:27:Leisa Hernandez RN) History of ART Treatment: No (07/23/2016 14:27:Leisa Hernandez RN) History of BARB: No (07/23/2016 14:27:Leisa Hernandez RN) Comments Obstetrical History: G1: SAB G2: SAB G3: Current (07/23/2016 14:27:Leisa Hernandez RN) MEDICAL HISTORY Med Hx Diabetes: No (07/23/2016 14:27:Leisa Hernandez RN) Med Hx Hypertension: No (07/23/2016 14:27:Leisa Hernandez RN) Med Hx Heart Disease: No (07/23/2016 14:27:Leisa Hernandez RN) Med Hx Autoimmune Disorder: No (07/23/2016 14:27:Leisa Hernandez RN) Med Hx Kidney Disease/UTI: No (07/23/2016 14:27:Leisa Hernandez RN) Med Hx Neurologic/Epilepsy: No (07/23/2016 14:27:Leisa Hernandez RN) Med Hx Psychiatric Disorders: No (07/23/2016 14:27:Leisa Hernandez RN) Med Hx Hepatitis/Liver Disease: No (07/23/2016 14:27:Leisa Hernandez RN) Med Hx Varicosities/Phlebitis: No (07/23/2016 14:27:Leisa Hernandez RN) Med Hx Thyroid Dysfunction: No (07/23/2016 14:27:Leisa Hernandez RN) Med Hx Trauma/Violence: No (07/23/2016 14:27:Leisa Hernandez RN) Med Hx Blood Transfusion: No (07/23/2016 14:27:Leisa Hernandez RN) Med Hx Pulmonary (Asthma,TB): No (07/23/2016 14:27:Leisa Hernandez RN) Med Hx Breast: No (07/23/2016 14:27:Leisa Hernandez RN) Med Hx SUPERCHARGE REPAIR SUPERVISOR Surgery: No (07/23/2016 14:27:Leisa Hernandez RN) Med Hx Hospitalization/Surgery: Yes (07/23/2016 14:27:Leisa Hernandez RN) Med Hx Anesthetic Complications: No (07/23/2016 14:27:Leisa Hernandez RN) Med Hx Abnormal Pap Smear: No (07/23/2016 14:27:Leisa Hernandez RN) Other Medical Diseases: No (07/23/2016 14:27:Leisa Hernandez RN) Med Hx Significant Family Hx: No (07/23/2016 14:27:Leisa Hernandez RN) Details of Med/Surg Hx: surgical: cyst removal on toe, wisdom teeth, tonsils (07/23/2016 14:27:Leisa Hernandez RN) INFECTIOUS HISTORY Inf Hx Gonorrhea: No (07/23/2016 14:27:Leisa Hernandez RN) Inf Hx Chlamydia: No (07/23/2016 14:27:Leisa Hernandez RN) Inf Hx Syphilis: No (07/23/2016 14:27:Leisa Hernandez RN) Inf Hx HIV/AIDS: No (07/23/2016 14:27:Leisa Hernandez RN) Inf Hx Human Papilloma Virus: No (07/23/2016 14:27:Leisa Hernandez RN) Inf Hx Pt/Partner Genital Herpes: No (07/23/2016 14:27:Leisa Hernandez RN) Inf Hx Tuberculosis/Exposure: No (07/23/2016 14:27:Leisa Hernandez RN) Inf Hx Hepatitis B,C: No (07/23/2016 14:27:Leisa Hernandez RN) Inf Hx Rash or Viral Illness: No (07/23/2016 14:27:Leisa Hernandez RN) GENETIC HISTORY Gen Hx Age >=35 at [place]: No (07/23/2016 14:27:Leisa Hernandez RN) Gen Hx Thalassemia: No (07/23/2016 14:27:Leisa Hernandez RN) Gen Hx Congenital Heart Defect: No (07/23/2016 14:27:Leisa Hernandez RN) Gen Hx Neural Tube Defect: No (07/23/2016 14:27:Leisa Hernandez RN) Gen Hx Down's Syndrome: Yes (07/23/2016 14:27:Leisa Hernandez RN) Gen Hx Bay-Sachs: No (07/23/2016 14:27:Leisa Hernandez RN) Gen Hx Tomas: No (07/23/2016 14:27:Leisa Hernandez RN) Gen Hx Familial Dysautonomia: No (07/23/2016 14:27:Leisa Hernandez RN) Gen Hx Sickle Cell Disease/Trait: No (07/23/2016 14:27:Leisa Hernandez RN) Gen Hx Hemophilia/Blood Disorder: No (07/23/2016 14:27:Leisa Hernandez RN) Gen Hx Muscular Dystrophy: No (07/23/2016 14:27:Leisa Hernandez RN) Gen Hx Cystic Fibrosis: No (07/23/2016 14:27:Leisa Hernandez RN) Gen Hx Huntingtons Chorea: No (07/23/2016 14:27:Leisa Hernandez RN) Gen Hx Mental Retardation/Autism: No (07/23/2016 14:27:Leisa Hernandez RN) Gen Hx Tested for Fragile X: No (07/23/2016 14:27:Leisa Hernandez RN) Gen Hx Other Inher/Chromosomal: No (07/23/2016 14:27:Leisa Hernandez RN) Gen Hx Maternal Metabolic DO: No (07/23/2016 14:27:Leisa Hernandez RN) Gen Hx Pt Father or FOB Defect: No (07/23/2016 14:27:Leisa Hernandez RN) Gen Hx Other Genetic History: No (07/23/2016 14:27:Leisa Hernandez RN) Gen Hx Drugs/Meds since LMP: Yes (07/23/2016 14:27:Leisa Hernandez RN) Gen Hx Medications: pnv, phenergan, fioricet, tums prn (07/23/2016 14:27:Leisa Hernandez RN) Details of Genetic History: down syndome and other genetic problems in FOB side- cousins (07/23/2016 14:27:Leisa Hernandez RN)
--- NOTE | 2016-07-26 06:16 | L&D Care Plan ---
LD CARE PLANS Datetime Report Generated by CPN: 07/26/2016 06:15 Datetime: 07/23/2016 23:32 Pain State: Risk For (Criselda Harden RN) Related To: Labor and Delivery Process; Treatment and Procedures; Post (Criselda Harden RN) Goal(s): Patients Pain will be Assessed and Managed; Patient will Verbalize Adequate Relief of Pain or the Ability to [place] with Current Pain (Criselda Harden RN) Interventions: Assess Pain Severity on Scale of 0 (None) to 5 (Severe); Assess Type, Location and Intensity of Pain Each Time Client Reports Discomfort and Notify Provider if Unusal Pain Develops; Encourage Proper Breathing and Relaxation Techniques; Offer Alternatives Such as Repositioning, Calm Environment, Massages, Diversional Activities, Ice Pack, Splinting, and Ambulation; Administer Analgesics as Ordered; Assist with Epidural Placement as Appropriate; Evaluate Therapeutic Effectiveness of Medication and Treatments (Criselda Harden RN) Outcome: Patient will Report Absence or Relief of Pain Consistent with Established Pain Goal (Criselda Harden RN) Status: Ongoing (Criselda Harden RN) Outcome: Patient will have a Decrease in Signs and Symptoms of Discomfort (Criselda Harden RN) Status: Ongoing (Criselda Harden RN) Outcome: Pain will be Controlled During Procedures (Criselda Harden RN) Status: Ongoing (Criselda Harden RN) Anxiety State: Risk For (Criselda Harden RN) Related To: Labor and Delivery Process; Fear of Unknown; Significant Life Event (Criselda Harden RN) Goal(s): Patient will have Decreased Anxiety and be able to Function at Acceptable Levels (Criselda Harden RN) Interventions: Assess Verbal and Nonverbal Behavioral Indicators of Anxiety; Assist Patient to Identify and Verbalize Symptoms of Anxiety; Identify and Demonstrate Techniques to Control Anxiety; Assist Patient with Coping Mechanisms to Manage Anxiety; Provide Theraputic Touch for the Patient; Explain to Patient, Using a Calm Reassuring Approach and Nonmedical Terms, All Activities, Procedures, and Concerns; Instruct Patient and Family about Post Discharge Care, Limitations, Symptoms to Report and Resources Available (Criselda Harden RN) Outcome: Patient will Identify, Verbalize and Demonstrate Techniques to Control Anxiety (Criselda Harden RN) Status: Ongoing (Criselda Harden RN) Outcome: Patient's Posture, Facial Expressions, Gestures and Activity Level will Reflect Decreased Anxiety (Criselda Harden RN) Status: Ongoing (Criselda Harden RN) Outcome: Patient will Verbalize a Sense of Control and/or Acceptance of the Situation (Criselda Harden RN) Status: Ongoing (Criselda Harden RN) Outcome: Patient will Identify and Utilize Support Person (Criselda Harden RN) Status: Ongoing (Criselda Harden RN) Knowledge Deficit State: Risk For (Criselda Harden RN) Related To: Labor and Delivery Process; Treatment and Procedures; Impending Alterations in Family Dynamics; Feeding and Infant Care; Community Resources and Available Support Mechanisms (Criselda Harden RN) Goal(s): Patient will Accurately Verbalize Understanding of Plan of Care and Treatment; Patient and Family will Accurately Verbalize Understanding of the Disease Process (Criselda Harden RN) Interventions: Assess Motivation and Willingness of Patient/Family to Learn; Assess Preferred Learning Mode: One to One Instruction, Reading, Videos, Group Discussion or Demonstration; Assess Barriers to Learning: Pain, Emotional State, Language Barrier, Cognitive Impairment, Visual or Hearing Deficits; Assess Patient and Family Knowledge of Disease Process, Medications and Treatment; Discuss Therapy and/or Treatment Options, Describe Rationale Behind Management, Therapy and Treatment Recommendations; Instruct Patient and Family on Signs and Symptoms to Report; Instruct Patient and Family on Medication Effects and Side Effects; Provide Appropriate and Timely Education Using Multiple Techniques; Provide Patient and Family with Support Group Information and Resources; Give Clear and Thorough Explanations and Demonstrations (Criselda Harden RN) Outcome: Patient and Family will Verbalize Understanding of Condition, Treatment and Signs and Symptoms to Report (Criselda Harden RN) Status: Ongoing (Criselda Harden RN) Outcome: Patient will Identify Perceived Learning Needs and Express Motivation to Learn (Criselda Harden RN) Status: Ongoing (Criselda Harden RN) Outcome: Patient will Verbalize Understanding of Desired Content, and/or Performs Desired Skill Prior to Discharge (Criselda Harden RN) Status: Ongoing (Criselda Harden RN) Infection State: Risk For (Criselda Harden RN) Related To: Prolonged Labor or Induction; Invasive Procedures; Altered Tissue Integrity (Criselda Harden RN) Goal(s): The Patient will be Free of Infection, Vital Signs Stable and Lab Work within Normal Parameters (Criselda Harden RN) Interventions: Instruct and Reinforce Proper Handwashing, Hygiene, and Care Techniques to Patient and Family; Monitor Vital Signs; Monitor Patient for the Following Signs of Infection: Fever, Abdominal Tenderness, Unusual Discharge; Monitor Aminiotic Fluid, Urine and Lochia for Color and Odor; Observe Wounds, Incisions and Invasive Line Sites for Redness, Drainage and Edema; Assess IV Sites per Hospital Policy; Monitor Lab and Test Results and Notify Provider of Abnormal Findings; Assess Nutritional Status and Promote Good Nutrition (Criselda Harden RN) Outcome: Patient will Remain Free of Infection (Criselda Harden RN) Status: Ongoing (Criselda Harden RN) Outcome: Infection will be Recognized Early to Allow for Prompt Treatment (Criselda Harden RN) Status: Ongoing (Criselda Harden RN) Outcome: Patient will have Vital Signs Within Expected Range (Criselda Harden RN) Status: Ongoing (Criselda Harden RN) Fluid Volume State: Risk For (Criselda Harden RN) Related To: Prolonged Labor or Induction (Criselda Harden RN) Goal(s): Patient will Achieve and Maintain a Balanced Fluid Volume Status; Hemodynamically Stable (Criselda Harden RN) Interventions: Monitor Vital Signs; Auscultate Breath Sounds; Monitor Patient for Skin Turgor, Mucous Membranes, Dry Skin, Weakness, Headaches and Confusion; Provide Oral Fluids as Ordered; Initiate and Maintain Intravenous Fluids as Ordered; Monitor Intake and Output as Indicated Per Patient Status; Accurately Measure Blood Loss; Monitor Lab and Test Results as Obtained and Notify Provider of Abnormal Findings; Monitor Patient's Weight (Criselda Harden RN) Outcome: Patient will have Clear Lung Sounds (Criselda Harden RN) Status: Ongoing (Criselda Harden RN) Outcome: Patient will have Vital Signs within Expected Range (Criselda Harden RN) Status: Ongoing (Criselda Harden RN) Outcome: Urine Output will be within Expected Range (Criselda Harden RN) Status: Ongoing (Criselda Harden RN) Outcome: Patient will have Minimal Generalized or Upper Extremity Edema (Criselda Harden RN) Status: Ongoing (Criselda Harden RN) Injury State: Risk For (Criselda Harden RN) Related To: Labor and Delivery Process (Criselda Harden RN) Goal(s): Patient will Remain Free from Injury (Criselda Harden RN) Interventions: Monitoring as per Hospital Protocol; Assess Neurological Status; Perform Risk Assessment of Patients with Induction and ; Perform Fall Risk Assessment and Prevention per Hospital Protocol; Perform DVT Risk Assessment and Prophylaxis per Hospital Protocol; Ensure that Oxygen, Suction, and Resuscitation Medications and Equipment are Readily Available; Confirm Patient ID Prior to Procedure(s) and Medication Administration per Hospital Policy (Criselda Harden RN) Outcome: Successful Fall Risk Prevention (Criselda Harden RN) Status: Ongoing (Criselda Harden RN) Outcome: Patient will Deliver Infant without Adverse Sequela (Criselda Harden RN) Status: Ongoing (Criselda Harden RN) Outcome: Patient's Neurological Status will Remain Stable (Criselda Harden RN) Status: Ongoing (Criselda Harden, ERIN) Impaired Skin Integrity State: Risk For (Criselda Harden RN) Related To: Vaginal Delivery; Prolonged Bedrest; Invasive Procedures (Criselda Harden RN) Goal(s): Patient will Maintain Optimal Skin Integrity, Free of Breakdown, Injury or Infection (Criselda Harden RN) Interventions: Complete Screening for Pressure Ulcer Risk and Initiate Protocol per Hospital Policy; Monitor Site of Skin Impairment for Color Changes, Redness, Swelling, Warmth, Pain or Other Signs of Infection; Encourage and Assist with Position Changes; Monitor Patient's Mobility Status; Provide Adequate Nutrition and Fluids; Teach Patient Appropriate Hygienic Care; Teach Patient/Family Skin Care Management (Criselda Harden RN) Outcome: Patient will not have Evidence of Injury Such as Skin Breakdown, Scrapes, Cuts, or Bruising (Criselda Harden RN) Status: Ongoing (Criselda Harden RN) Outcome: Patient will Report Any Altered Sensation or Pain at Site of Skin Impairment (Criselda Harden RN) Status: Ongoing (Criselda Harden RN) Outcome: Patients Incisions and Wounds will be without Signs or Symptoms of Infection (Criselda Harden RN) Status: Ongoing (Criselda Harden RN) Outcome: Patient will Demonstrate Understanding of Plan to Heal Skin and Prevent Reinjury and Verbalize Risk Factors (Criselda Harden RN) Status: Ongoing (Criselda Harden RN) Additional Care Plan State: Actual (Criselda Lattibeaudeir, RN) Nursing Diagnosis or r/t: (Criselda Harden RN) Goal(s): Parents will breastfeed at least 8 times in 24 hours. (Criselda Harden RN) Interventions: Support parents in their efforts to breastfeed . (Criselda Harden RN) Outcome Status: Ongoing (Criselda Harden RN)
[2016-07-26 08:47] LABS: HEMATOCRIT 28.1 % (36.0-47.0); HEMOGLOBIN 9.2 g/dL (12.0-15.5); HGB HCT DIFFERENCE -0.5; MEAN CORPUSCULAR HEMOGLOBIN 28.1 pg (27.0-33.4); MEAN CORPUSCULAR HGB CONC 32.7 g/dL (32.0-36.0); MEAN CORPUSCULAR VOLUME 86 fl (80-97); RED BLOOD COUNT 3.27 10^6/uL (3.72-5.28); RED CELL DISTRIBUTION WIDTH 14.5 % (11.5-14.0); WHITE BLOOD COUNT 11.1 10^3/uL (4.0-10.5)
[2016-07-26] MEDS: PRENATAL VITAMIN W-O CA NO5/FE FUMARATE/FA CAPSULE PO SCH (09:05)
[2016-07-26] MEDS: SENNOSIDES/DOCUSATE 8.6-50 MG 1 EACH TABLET PO SCH (09:05)
[2016-07-26] MEDS: FERROUS SULFATE 325 MG TABLET PO SCH ×2 (09:05→18:44)
[2016-07-26] MEDS: DOCUSATE SODIUM 100 MG CAPSULE PO SCH ×2 (09:06→18:44)
--- NOTE | 2016-07-26 10:27 | PDOC PROGRESS REPORT ---
Subjective-OB Subjective: Post Delivery Day: 20 year old. Denies any needs at this time well offers no complaints ff@u-1 mild lochia moving to [facility] tomorrow desires early discharge precautions given for travel d/c home follow up with OB- 4-6 weeks Physical Exam (OB) Vital Signs: Temp Pulse Resp BP Pulse Ox 98.1 F 66 16 124/67 99 07/26/16 08:42 07/26/16 08:42 07/26/16 08:42 07/26/16 08:42 07/26/16 08:42 Intake & Output 07/25/16 07/26/16 07/27/16 06:59 06:59 06:59 Intake Total 400 Balance 400 - Lochia Lochia Amount: Scant < 10 ml Lochia Color: Rubra/Red - Abdomen Description: Tender, Soft Hernia Present: No Fundal Description: Firm, Midline Fundal Height: u/u - u/2 Objective-Diagnostic Laboratory: 07/26/16 08:30 07/26/16 08:30 WBC 11.1 H RBC 3.27 L Hgb 9.2 L Hct 28.1 L MCV 86 MCH 28.1 MCHC 32.7 RDW 14.5 H Plt Count 219
[2016-07-27] MEDS: IBUPROFEN 800 MG TABLET PO SCH (06:24)
[2016-07-27 09:07] VITALS: BP 124/67
[2016-07-27] MEDS: FERROUS SULFATE 325 MG TABLET PO SCH (09:22)
[2016-07-27] MEDS: PRENATAL VITAMIN W-O CA NO5/FE FUMARATE/FA CAPSULE PO SCH (09:22)
[2016-07-27] MEDS: SENNOSIDES/DOCUSATE 8.6-50 MG 1 EACH TABLET PO SCH (09:22)
[2016-07-27] MEDS: DOCUSATE SODIUM 100 MG CAPSULE PO SCH (09:23)
--- NOTE | 2016-07-27 09:23 | PDOC PROGRESS REPORT ---
Subjective-OB Subjective: Post Delivery Day: 20 year old. Denies any needs at this time. Ready to go home. Plan to travel to [place] after discharge today. Physical Exam (OB) Vital Signs: Temp Pulse Resp BP Pulse Ox 98.4 F 53 L 16 124/67 99 07/27/16 09:03 07/27/16 09:03 07/27/16 09:03 07/27/16 09:03 07/27/16 09:03 Intake & Output 07/26/16 07/27/16 07/28/16 06:59 06:59 06:59 Intake Total 400 Balance 400 - Lochia Lochia Amount: Scant < 10 ml Lochia Color: Rubra/Red - Abdomen Description: Tender, Soft, Round Hernia Present: No Bowel Sounds: Normoactive Flatus Presence: Present Stool: Yes Fundal Description: Firm, Midline Fundal Height: u/u - u/2 Objective-Diagnostic Laboratory: 07/26/16 08:30
--- NOTE | 2016-07-27 09:32 | PDOC DISCHARGE SUMMARY ---
Final Diagnosis Discharge Date: 07/27/16 - Final Diagnosis (1) Delivery normal Is this a current diagnosis for this admission?: Yes (2) Is this a current diagnosis for this admission?: Yes Discharge Data - Discharge Medication Home Medications: Vit/Iron Fumarate/FA [ Tablet] 1 tab PO DAILY 07/23/16 Ibuprofen [Motrin 800 mg Tablet] 800 mg PO Q8 #90 tablet 07/26/16 Gestational Age: 41.2 wks Reason(s) for Admission: Induction of Labor Procedures: NST, Ultrasound Intrapartum Procedure(s): Spontaneous Vaginal Delivery Complication(s): Laceration-Vaginal, Laceration-Perineal Laceration-Degree: 1st - [place] Data Baby 1 Male at 1 minute: 8 at 5 minutes: 9 Weight: 4.337 kg Home with Mother: Yes Complications: No - Diagnosis Test Laboratory: Temp Pulse Resp BP Pulse Ox 98.4 F 53 L 16 124/67 99 07/27/16 09:03 07/27/16 09:03 07/27/16 09:03 07/27/16 09:03 07/27/16 09:03 07/23/16 07/23/16 07/26/16 23:25 23:34 08:30 RBC 3.66 L 3.27 L Hgb 10.2 L 9.2 L Hct 30.9 L 28.1 L Urine Opiates Screen NEGATIVE - Discharge information/Instructions Discharge Activity: Activity As Tolerated, Balance Activity w/Rest, No Lifting Over 10 Pounds, Pelvic Rest, Slowly Increase Activity, No tub bath Discharge Diet: Regular Disposition: HOME, SELF-CARE Follow [facility] with: [facility] in: 4, Weeks
== END 2016-07-27 12:31 | disposition home or self-care (01) | DRG 775 ==
LOC: LR 23:00 → 2S 07-25 09:41
PROVIDERS: ADMIT Obstetrics & Gynecology; ATTEND Obstetrics & Gynecology
PROC: 4A1HXCZ Monitoring of Products of Conception, Cardiac Rate, External Approach (ICD-10-PCS; 2016-07-23)
PROC: 3E0P7GC Introduction of Other Therapeutic Substance into Female Reproductive, Via Natural or Artificial Opening (ICD-10-PCS; 2016-07-24)
PROC: 10E0XZZ Delivery of Products of Conception, External Approach (ICD-10-PCS; principal; 2016-07-25)
PROC: 0HQ9XZZ Repair Perineum Skin, External Approach (ICD-10-PCS; 2016-07-25)
DX: O48.0 Post-term pregnancy (principal); O77.0 Labor and delivery complicated by meconium in amniotic fluid; Z87.891 Personal history of nicotine dependence; Z3A.41 41 weeks gestation of pregnancy; Z37.0 Single live birth
CPT/HCPCS: 36415; 80307; 81005; 85025; 85027; 86592; 86850; 86900; 86901; 90686; J2210; J2300; J2550; J2590; J3490